=== PATIENT | female | born 1975 | race Caucasian/White ===

== ENCOUNTER → 2016-07-14 | Outpatient (CLI) | payer BC ==
--- NOTE | 2016-07-16 15:12 | CR ---
EXAM DATE: 07/14/16 PATIENT'S AGE: 40 Patient: SHASHANK ESTRADA Facility: [place], [place] Site . Site : [id number] Study: XRay Chest [id number]/13/2017 10:57:59 AM Ordering Physician: Jeff Jamison Final Report: INDICATION: Coughing, wheezing and SOB for 3 weeks. TECHNIQUE: PA and lateral. COMPARISON: None. FINDINGS: Lungs and pleural spaces clear. Heart size and pulmonary vasculature within normal limits. No significant osseous abnormality. IMPRESSION: Negative chest. Dictated by Leon Pierre MD @ Jul 14 2016 4:16PM (Electronic Signature) Report Signed by Proxy and Original Signed Document filed in the Medical Record. MTDD
== END ==
LOC: MW.CHOBGYN 10:45
PROVIDERS: ATTEND Nurse Practitioner Women's Health
DX: J06.9 Acute upper respiratory infection, unspecified (principal)
CPT/HCPCS: 71020; 71020-26

== ENCOUNTER → 2016-08-25 | Outpatient (CLI) | payer BC ==
--- NOTE | 2016-09-03 14:59 | MY ---
EXAMINATION: Bilateral digital mammography utilizing CAD. HISTORY: Screening exam. Comparison is made to previous studies dated 08/20/2012. FINDINGS: Bilateral scattered fibroglandular densities. No suspicious calcifications, masses or a rchitectural distortions. No pathologic appearing lymph nodes, no abnormal skin thickening or nipp le inversion. CAD highlighted regions appear normal at this time. IMPRESSION: BI-RADS category I - negative mammogram. Continued screening according to ACR-ACS gu idelines suggested. THE FALSE-NEGATIVE RATE OF MAMMOGRAM IS APPROXIMATELY 10%. MANAGEMENT OF A PALPABLE ABNORMALITY MUST BE BASED UPON CLINICAL GROUNDS. SENSITIVITY FOR DETECTION OF ABNORMALITIES IN DENSE BREASTS IS LOW. NOTE: A letter will be sent to the patient regarding findings. [facility] -- JULIANA Gunderson [phone] - FAX [phone]
== END | disposition home or self-care (01) ==
LOC: MW.MAM 08:06
PROVIDERS: ATTEND Nurse Practitioner Women's Health
DX: Z12.31 Encounter for screening mammogram for malignant neoplasm of breast (principal)
CPT/HCPCS: G0202; G0202-26

== ENCOUNTER → 2016-09-18 | Outpatient (CLI) | payer BC ==
--- NOTE | 2016-09-19 10:02 | CR ---
EXAMINATION: Lumbar spine HISTORY: Low back pain COMPARISON: None TECHNIQUE: AP and lateral views FINDINGS: The lumbar spinal alignment is normal. The vertebral body heights and disc spaces appear w ell-maintained. There is no fracture or dislocation. The SI joints are symmetric. Early marginal ost eophytes are noted. IMPRESSION: Minimal degenerative changes without acute findings.
== END ==
LOC: MW.CHOBGYN 15:18
PROVIDERS: ATTEND Nurse Practitioner Women's Health
DX: M54.5 Low back pain (principal); M47.816 Spondylosis without myelopathy or radiculopathy, lumbar region
CPT/HCPCS: 72100; 72100-26

== ENCOUNTER 2019-12-17 12:08 | Emergency (ER) | payer BC, OTHER ==
--- NOTE | 2019-12-17 14:28 | CR ---
HISTORY: Pain. TECHNIQUE: Three views of the lumbar spine. COMPARISON: No prior lumbar radiographs. FINDINGS: Five lumbar type vertebral bodies. There is no acute lumbar fracture. Mild loss intervertebral disc height at L5-S1. Mild posterior listhesis of L5 on S1. The lumbar alignment is otherwise maintained. Surgical clips in the right upper quadrant likely relate to prior cholecystectomy. IMPRESSION: 1. Mild posterior listhesis of L5 on S1 with mild loss of disc height at that level. 2. Disc height and alignment at other levels is maintained. 3. No acute fracture. Dictated by Oli Sykes MD @ 12/17/2019 2:26:37 PM Dictated by: Oli Sykes MD @ 12/17/2019 14:26:39 (Electronically Signed)
[2019-12-17] MEDS ORDERED: methylPREDNISolone Sodium Succinate 125 MG/2 ML SDV IM ONE (14:29)
[2019-12-17] MEDS ORDERED: Ketorolac 60 MG/2 ML SDV IM ONE (14:29)
--- NOTE | 2019-12-17 14:34 | EDM.PDOC ---
ED HPI GENERAL MEDICAL PROBLEM - General Chief Complaint: Back Pain or Injury Stated Complaint: BACK PAIN Time Seen by Provider: 12/17/19 12:20 Source of Information: Reports: Patient History Limitations: Reports: No Limitations - History of Present Illness INITIAL COMMENTS - FREE TEXT/NARRATIVE: HISTORY AND PHYSICAL: History of present illness: Patient is a 44-year-old female who presents to the ED today with concern of an exacerbation of low back pain for the past week. Patient states she has a history of low back pain and lumbar issues. Patient states that she has had a bulging disc before at her L5 and S1. Patient states that she has had this monitored with her primary care provider. Patient states she did have a flareup approximately 2 months ago and was placed on steroids at that time and states that she did have improvement of her symptoms. Patient states over the past week she began having another flareup and this morning when she woke up she was more stiff and sore than she has been. Patient states she does have some radiation of her back pain into her left buttocks. Patient denies any trauma or injury of her back. Patient denies any loss or retention of bowel bladder function or saddle anesthesia. Patient denies fever, chills, chest pain, shortness of breath, or cough. Denies headache, neck stiff ness, change in vision, syncope, or near syncope. Denies nausea, vomiting, abdominal pain, diarrhea, constipation, or dysuria. Has not noted any blood in urine or stool. Patient has been eating and drinking appropriately. Review of systems: As per history of present illness and below otherwise all systems reviewed and negative. Past medical history: As per history of present illness and as reviewed below otherwise noncontributory. Surgical history: As per history of present illness and as reviewed below otherwise noncontributory. Social history: See social history for further information Family history: As per history of present illness and as reviewed below otherwise noncontributory. Physical exam: General: Patient is alert, oriented, and in no acute distress. Patient sitting comfortably on exam table. HEENT: Atraumatic, normocephalic, pupils equal and reactive bilaterally, negative for conjunctival pallor or scleral icterus, mucous membranes moist, TMs normal bilaterally, throat clear, neck supple, nontender, trachea midline. No drooling or trismus noted. No meningeal signs. No hot potato voice noted. Lungs: Clear to auscultation, breath sounds equal bilaterally, chest nontender. Heart: S1S2, regular rate and rhythm without overt murmur Abdomen: Soft, nondistended, nontender. Negative for masses or hepatosplenomegaly. Negative for costovertebral tenderness. Pelvis: Stable nontender. Genitourinary: Deferred. Rectal: Deferred. Skin: Intact, warm, dry. No lesions or rashes noted. Extremities: No obvious deformity of the complete spine. No step-offs, crepitus, or point tenderness to palpation of the complete spine. Patient does have pain with range of motion of the lumbar spine. Patellar reflexes intact bilaterally. Heel/toe gait intact. Otherwise, atraumatic, negative for cords or calf pain. Neurovascular unremarkable. Neuro: Awake, alert, oriented. Cranial nerves II through XII unremarkable. Cerebellum unremarkable. Motor and sensory unremarkable throughout. Exam nonfocal. Notes: Patient states she is not currently taking naproxen. Discussed importance for follow-up with her primary care provider. Voices understanding and is agreeable to plan of care. Denies any further questions or concerns at this time. Diagnostics: UA, urine hCG, lumbar x-ray Therapeutics: Toradol, Norflex, Solu-Medrol Prescription: Diclofenac, Flexeril Impression: Acute on chronic low back pain Plan: 1. The medication you received today does cause drowsiness, so do not drive for the remaining day. 2. When resting please lay on a flat firm surface. Limit your mobility to prevent muscle stiffness. Get up to ambulate/move around/gentle stretching multiple times throughout the day. May alternate heat and ice to painful areas. 3. Tylenol as needed for back pain. Otherwise, take the prescribed Flexeril and diclofenac as directed. Diclofenac as an anti-inflammatory medication so do not take any additional NSAIDs with this medication, such as naproxen, ibuprofen, or Aleve. Flexeril, this medication may cause drowsiness, so do not take it while driving or needing to be functioning outside of the home. 4. Follow-up with your primary care provider as discussed. Return to the ED as needed and as discussed. Definitive disposition and diagnosis as appropriate pending reevaluation and review of above. 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: Musculoskeletal History: Reports: Back Pain, Chronic Dermatologic History: Reports: Other (See Below) Other Dermatologic History: acne - Past Surgical History Respiratory Surgical History: Reports: None GI Surgical History: Reports: Cholecystectomy Social & Family History - Family History Family Medical History: Noncontributory - Tobacco Use Smoking Status *Q: Former Smoker Used Tobacco, but Quit: Yes Month/Year Tobacco Last Used: 6 years ago - Caffeine Use Caffeine Use: Reports: Coffee - Recreational Drug Use Recreational Drug Use: No ED ROS GENERAL - Review of Systems Review Of Systems: Comprehensive ROS is negative, except as noted in HPI. ED EXAM, GENERAL - Physical Exam Exam: See Below (See dictation) Course - Vital Signs Last Recorded V/S: Last Vital Signs Temp 97.7 F 12/17/19 12:55 Pulse 104 H 12/17/19 12:55 Resp 18 12/17/19 12:55 BP 146/89 H 12/17/19 12:55 Pulse Ox 96 12/17/19 12:55 - Orders/Labs/Meds Labs: Laboratory Tests 12/17/19 12/17/19 Range/Units 13:38 13:38 Urine Color YELLOW Urine Appearance CLEAR Urine pH 6.5 (5.0-8.0) Ur Specific [place] 1.020 (1.001-1.035) Urine Protein NEGATIVE (NEGATIVE) mg/dL Urine Glucose (UA) NEGATIVE (NEGATIVE) mg/dL Urine Ketones NEGATIVE (NEGATIVE) mg/dL Urine Occult Blood NEGATIVE (NEGATIVE) Urine Nitrite NEGATIVE (NEGATIVE) Urine Bilirubin NEGATIVE (NEGATIVE) Urine Urobilinogen 0.2 (<2.0) EU/dL Ur Leukocyte Esterase NEGATIVE (NEGATIVE) Urine HCG, Qual NEGATIVE (NEGATIVE) Meds: Medications Discontinued Medications Generic Name Dose Route Start Last Admin Trade Name Mello PRN Reason Stop Dose Admin Ketorolac Tromethamine 60 mg 12/17/19 14:29 Toradol IM 12/17/19 14:30 ONETIME ONE Methylprednisolone Sodium Succinate 125 mg 12/17/19 14:29 Solu-Medrol IM 12/17/19 14:30 ONETIME ONE Orphenadrine Citrate 60 mg 12/17/19 14:29 Norflex IM 12/17/19 14:30 ONETIME ONE Departure - Departure Time of Disposition: 14:33 Disposition: Home, Self-Care 01 Clinical Impression: Acute exacerbation of chronic low back pain - Discharge Information Referrals: Kathleen Aguilar MANAGER CONSUMER [Primary Care Provider] - Additional Instructions: The following information is given to patients seen in the emergency department who are being discharged to home. This information is to outline your options for follow-up care. We provide all patients seen in our emergency department with a follow-up referral. The need for follow-up, as well as the timing and circumstances, are variable depending upon the specifics of your emergency department visit. If you don't have a primary care physician on staff, we will provide you with a referral. We always advise you to contact your personal physician following an emergency department visit to inform them of the circumstance of the visit and for follow-up with them and/or the need for any referrals to a consulting specialist. The emergency department will also refer you to a specialist when appropriate. This referral assures that you have the opportunity for follow-up care with a specialist. All of these measure are taken in an effort to provide you with optimal care, which includes your follow-up. Under all circumstances we always encourage you to contact your private physician who remains a resource for coordinating your care. When calling for f ollow-up care, please make the office aware that this follow-up is from your recent emergency room visit. If for any reason you are refused follow-up, please contact the [facility] Emergency Department at and asked to speak to the emergency department charge nurse. [facility] Primary Care [address] [place] [address] [id number] [facility] [address] [place] [address] 1. The medication you received today does cause drowsiness, so do not drive for the remaining day. 2. When resting please lay on a flat firm surface. Limit your mobility to prevent muscle stiffness. Get up to ambulate/move around/gentle stretching multiple times throughout the day. May alternate heat and ice to painful areas. 3. Tylenol as needed for back pain. Otherwise, take the prescribed Flexeril and diclofenac as directed. Diclofenac as an anti-inflammatory medication so do not take any additional NSAIDs with this medication, such as naproxen, ibuprofen, or Aleve. Flexeril, this medication may cause drowsiness, so do not take it while driving or needing to be functioning outside of the home. 4. Follow-up with your primary care provider as discussed. Return to the ED as needed and as discussed. Sepsis Event Note (ED) - Evaluation Sepsis Screening Result: No Definite Risk - Focused Exam Vital Signs: Vital Signs Temp Pulse Resp BP Pulse Ox 12/17/19 12:55 97.7 F 104 H 18 146/89 H 96
== END 2019-12-17 15:25 | disposition home or self-care (01) ==
LOC: MW.ED 12:08
DX: M54.5 Low back pain (principal); G89.29 Other chronic pain; J45.909 Unspecified asthma, uncomplicated; Z87.891 Personal history of nicotine dependence
CPT/HCPCS: 72100; 81003; 81025; 96372; 99283; J1885; J2360; J2930

== ENCOUNTER 2020-01-04 22:21 | Emergency (ER) | payer OTHER ==
[2020-01-04] MEDS ORDERED: Sodium Chloride 0.9% 2.5 ML Syringe FLUSH PRN (22:29)
[2020-01-04] MEDS ORDERED: Sodium Chloride 0.9% 10 ML Syringe FLUSH PRN (22:29)
[2020-01-04 23:26] LABS: BLOOD UREA NITROGEN,BUN 17 mg/dL (7.0-18.0); CARBON DIOXIDE,CO2 23.1 mmol/L (21.0-32.0); CHLORIDE,CL 102 mmol/L (98-107); GLUCOSE RANDOM 105 mg/dL (74-106); POTASSIUM,K 3.7 mmol/L (3.5-5.1); SODIUM,NA 139 mmol/L (136-145)
--- NOTE | 2020-01-05 00:14 | EDM.PDOC ---
ED HPI GENERAL MEDICAL PROBLEM - General Chief Complaint: Respiratory Problem Stated Complaint: SHORTNESS OF BREATHE Time Seen by Provider: 01/04/20 22:29 Source of Information: Reports: Patient, Old Records History Limitations: Reports: No Limitations - History of Present Illness INITIAL COMMENTS - FREE TEXT/NARRATIVE: 44-year-old female with past medical history of chronic back pain presenting with shortness of breath. Patient developed sudden onset dyspnea about 3 hours prior to arrival while at rest. No history of exertion or chemical exposure. No report of any wheezing, coughing, or hemoptysis. Patient states that she used her albuterol inhaler "20 times" before coming to the ER without relief. She denies any associated fever, wheezing, hemoptysis, chest discomfort, nausea, vomiting, diarrhea, abdominal pain, or back pain. No preceding infectious symptoms over the past few days. No other complaints. ROS: A 10-point review of systems was negative, except as noted in the HPI (or in the ROS section of this note). Past medical history: Reviewed, no additional pertinent history. Surgical history: Reviewed in system, no additional pertinent history. Social history: Reviewed in system, no additional pertinent history. Family history: Reviewed in system, no additional pertinent history. PHYSICAL EXAM Vital signs reviewed. Nursing notes reviewed. Constitutional: Awake, alert, non-distressed. Head: Normocephalic, atraumatic. Eyes: EOMI, conjunctiva normal, no discharge, no scleral icterus. Ears, Nose, Throat: External ears and nose normal, moist oral mucosa. Cardiovascular: 2+ radial pulses bilaterally, capillary refill less than 2 seconds. RRR no MRG. Pulmonary: normal work of breathing, no accessory muscle use. CTA BL. Speaking in full sentences without difficulty. Handling secretions well. Abdomen/GI: Soft, nontender, nondistended, no guarding or rigidity, no masses. Musculoskeletal: No deformities. Integumentary: Appropriate color for ethnicity, warm, dry, no pallor or jaundice, no rash. Neurologic: Alert, answering questions appropriately, normal speech, no facial droop, moving all extremities well. Psychiatric: Appropriate mood and affect, normal thought process. 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: Musculoskeletal History: Reports: Back Pain, Chronic Neurological History: Reports: None Psychiatric History: Reports: None Endocrine/Metabolic History: Reports: None Hematologic History: Reports: None Dermatologic History: Reports: Other (See Below) Other Dermatologic History: acne - Infectious Disease History Infectious Disease History: Reports: Chicken Pox - Past Surgical History Respiratory Surgical History: Reports: None GI Surgical History: Reports: Cholecystectomy Social & Family History - Family History Family Medical History: Noncontributory - Tobacco Use Smoking Status *Q: Never Smoker - Caffeine Use Caffeine Use: Reports: Coffee - Recreational Drug Use Recreational Drug Use: No ED ROS GENERAL - Review of Systems Review Of Systems: See Below ED EXAM, GENERAL - Physical Exam Exam: See Below EKG INTERPRETATION EKG Interpretation Comments: 12-Lead ECG Interpretation Acquired: 11:20 PM Rhythm: Sinus rhythm Rate: 95 bpm [place]: Normal Intervals: Right bundle branch block Ectopy: None Ischemic Changes: None apparent RV Strain: No obvious RV strain pattern. ST Segments/T-Waves: No notable changes Course - Vital Signs Text/Narrative:: Patient hemodynamically stable, afebrile, well-appearing, looks nontoxic. Differential diagnosis includes but is not limited to: Pneumonia, pleural effusion, pneumothorax, pulmonary embolism, congestive heart failure, ACS, arrhythmia, anemia, viral syndrome, and many others. CBC unremarkable. D-dimer negative. Chemistry panel shows mild creatinine elevation. Normal LFTs. Troponin negative. test negative. Chest x- rays are clear. 12-lead ECG non-ischemic. I considered a multitude of differential diagnoses for the patient's shortness of breath, including: Acute coronary syndrome: the ECGs do not demonstrate acute ischemia and troponin testing is negative. They have a HEART score of 1. o Under the original HEART score study, risk of MACE at 30 days with a HEART score 0-3 and a single negative troponin is 1.7% (Dennehotso et al. PMID: [id number]) o Jasper et al. (PMCID: [id number]) demonstrated HEART score 0-3 with negative troponin: 0.2% 30-day risk of all-cause mortality or NH, 0.4% 6-week M VITALY risk Pulmonary embolism: The patient the patient is moderate risk by Wells PE criteria and has a D-dimer within normal limits by our laboratory Pneumonia: The patient has no hypoxia or tachypnea, and has no new radiographic infiltrate. They have no systemic signs of illness such as fever, tachypnea, hypoxia, tachycardia, or rigors. Acute decompensated heart failure/pulmonary edema: no significant respiratory distress (hypoxia, tachypnea), no significant lower extremity edema, no evidence of edema on chest x-rays, no JVD. Pneumo/hemothorax or pleural effusion: no evidence of such on imaging studies, no history of thoracic trauma. Asthma exacerbation: No wheezing or prolonged expiratory phase. COPD exacerbation: No wheezing or prolonged expiratory phase. No history or COPD exacerbation or significant tobacco use. Significant anemia: Hemoglobin normal on CBC. Electrolyte derangements: BMP obtained, without significant derangements. Critical aortic stenosis: No murmur or syncope, no chest pain, no known history of aortic stenosis. Pericardial effusion: Normal heart sounds. No evidence on imaging studies. Chai/pericarditis: No fever, no friction rub, negative troponin testing, non- diagnostic ECG. No preceding viral illness. Viral syndrome (URI, bronchitis): Not supported by history, no rhinorrhea, cough, sore throat, fever, headache, myalgias, or other typical symptoms endorsed. Anxiety state: Presentation not consistent. Work-up negative. Etiology of patient's complaints is not entirely clear but there is no evidence of an acute emergency medical condition requiring further work-up, admission to the hospital, or specialist consultation. Plan: Patient is stable to discharge home with outpatient primary care clinic follow-up. Strict emergency department return precautions were provided, patient indicated understanding. All questions were answered prior to departure. Discharged in good condition. HEART Score for Major Cardiac Events RESULT SUMMARY: 1 points Low Score (0-3 points) Risk of MACE of 0.9-1.7%. INPUTS: History > 0 = Slightly suspicious EKG > 0 = Normal Age > 1 = 45-64 Risk factors > 0 = No known risk factors Initial troponin > 0 = ?normal limit Wells' Criteria for Pulmonary Embolism RESULT SUMMARY: 4.5 points Moderate risk group: 16.2% chance of PE in an ED population. Another study assigned scores ? 4 as PE Unlikely and had a 3% incidence of PE. Another study assigned scores > 4 as PE Likely and had a 28% incidence of PE. INPUTS: Clinical signs and symptoms of DVT > 0 = No PE is #1 diagnosis OR equally likely > 3 = Yes Heart rate > 100 > 1.5 = Yes Immobilization at least 3 days OR surgery in the previous 4 weeks > 0 = No Previous, objectively diagnosed PE or DVT > 0 = No Hemoptysis > 0 = No Malignancy w/ treatment within 6 months or palliative > 0 = No Last Recorded V/S: Last Vital Signs Temp 35.9 C L 01/04/20 22:31 Pulse 97 01/04/20 22:31 Resp 14 01/04/20 22:31 BP 131/80 01/04/20 22:31 Pulse Ox 97 01/04/20 22:31 - Orders/Labs/Meds Orders: Active Orders 24 hr Category Date Time Status Saline Lock Insert [OM.PC] Stat Oth 01/04/20 22:29 Ordered Labs: Laboratory Tests 01/04/20 01/04/20 01/04/20 Range/Units 22:41 22:41 22:41 WBC 5.05 (4.0-11.0) K/uL RBC 4.64 (4.30-5.90) M/uL Hgb 13.4 (12.0-16.0) g/dL Hct 40.7 (36.0-46.0) % MCV 87.7 (80.0-98.0) fL MCH 28.9 (27.0-32.0) pg MCHC 32.9 (31.0-37.0) g/dL RDW Std Deviation 45.4 (28.0-62.0) fl RDW Coeff of Sim 14 (11.0-15.0) % Plt Count 327 (150-400) K/uL MPV 9.30 (7.40-12.00) fL Neut % (Auto) 59.4 (48.0-80.0) % Lymph % (Auto) 29.3 (16.0-40.0) % [place] % (Auto) 9.1 (0.0-15.0) % Eos % (Auto) 1.8 (0.0-7.0) % Baso % (Auto) 0.4 (0.0-1.5) % Neut # (Auto) 3.0 (1.4-5.7) K/uL Lymph # (Auto) 1.5 (0.6-2.4) K/uL [place] # (Auto) 0.5 (0.0-0.8) K/uL Eos # (Auto) 0.1 (0.0-0.7) K/uL Baso # (Auto) 0.0 (0.0-0.1) K/uL Nucleated RBC % 0.0 /100WBC Nucleated RBCs # 0 K/uL D-Dimer, Quantitative (0.0-0.50) mg/L FEU Sodium 139 (136-145) mmol/L Potassium 3.7 (3.5-5.1) mmol/L Chloride 102 (98-107) mmol/L Carbon Dioxide 23.1 (21.0-32.0) mmol/L BUN 17 (7.0-18.0) mg/dL Creatinine 1.1 H (0.6-1.0) mg/dL Est Cr Clr Drug Dosing 54.55 mL/min Estimated GFR (MDRD) 54.2 ml/min Glucose 105 (74-106) mg/dL Calcium 9.0 (8.5-10.1) mg/dL Total Bilirubin 0.2 (0.2-1.0) mg/dL AST 36 (15-37) IU/L ALT 43 (14-63) IU/L Alkaline Phosphatase 84 (46-116) U/L Troponin I < 0.050 (0.000-0.056) ng/mL Total Protein 7.1 (6.4-8.2) g/dL Albumin 3.9 (3.4-5.0) g/dL Globulin 3.2 (2.6-4.0) g/dL Albumin/Globulin Ratio 1.2 (0.9-1.6) HCG, Qual NEGATIVE (NEG) 01/04/20 Range/Units 22:41 WBC (4.0-11.0) K/uL RBC (4.30-5.90) M/uL Hgb (12.0-16.0) g/dL Hct (36.0-46.0) % MCV (80.0-98.0) fL MCH (27.0-32.0) pg MCHC (31.0-37.0) g/dL RDW Std Deviation (28.0-62.0) fl RDW Coeff of Sim (11.0-15.0) % Plt Count (150-400) K/uL MPV (7.40-12.00) fL Neut % (Auto) (48.0-80.0) % Lymph % (Auto) (16.0-40.0) % [place] % (Auto) (0.0-15.0) % Eos % (Auto) (0.0-7.0) % Baso % (Auto) (0.0-1.5) % Neut # (Auto) (1.4-5.7) K/uL Lymph # (Auto) (0.6-2.4) K/uL [place] # (Auto) (0.0-0.8) K/uL Eos # (Auto) (0.0-0.7) K/uL Baso # (Auto) (0.0-0.1) K/uL Nucleated RBC % /100WBC Nucleated RBCs # K/uL D-Dimer, Quantitative 0.33 (0.0-0.50) mg/L FEU Sodium (136-145) mmol/L Potassium (3.5-5.1) mmol/L Chloride (98-107) mmol/L Carbon Dioxide (21.0-32.0) mmol/L BUN (7.0-18.0) mg/dL Creatinine (0.6-1.0) mg/dL Est Cr Clr Drug Dosing mL/min Estimated GFR (MDRD) ml/min Glucose (74-106) mg/dL Calcium (8.5-10.1) mg/dL Total Bilirubin (0.2-1.0) mg/dL AST (15-37) IU/L ALT (14-63) IU/L Alkaline Phosphatase (46-116) U/L Troponin I (0.000-0.056) ng/mL Total Protein (6.4-8.2) g/dL Albumin (3.4-5.0) g/dL Globulin (2.6-4.0) g/dL Albumin/Globulin Ratio (0.9-1.6) HCG, Qual (NEG) Meds: Medications Discontinued Medications Generic Name Dose Route Start Last Admin Trade Name Freq PRN Reason Stop Dose Admin Sodium Chloride 10 ml 01/04/20 22:29 Saline Flush FLUSH ASDIRECTED PRN Keep Vein Open Sodium Chloride 2.5 ml 01/04/20 22:29 Saline Flush FLUSH ASDIRECTED PRN Keep Vein Open Departure - Departure Time of Disposition: 01:21 Disposition: Home, Self-Care 01 Condition: Good Clinical Impression: Dyspnea Qualifiers: Dyspnea type: unspecified Qualified Code(s): R06.00 - Dyspnea, unspecified - Discharge Information *PRESCRIPTION DRUG MONITORING PROGRAM REVIEWED*: Not Applicable *COPY OF PRESCRIPTION DRUG MONITORING REPORT IN PATIENT LASHAWN: Not Applicable Instructions: Shortness of Breath, Adult Referrals: Kathleen Aguilar, [employer] [Primary Care Provider] - 3 Days (For follow-up of symptoms.) Forms: ED Department Discharge Additional Instructions: You were seen in the emergency department for shortness of breath. At this point, your x-rays, blood work, and EKG look reassuring. We see no evidence of pneumonia, heart attack, fluid in the lungs, or a blood clot in your lungs. Your vital signs are normal at the moment. The explanation for your symptoms is not entirely clear but I feel comfortable with you going home tonight. I would like for you to follow-up with your primary medical clinic in the next 2 to 3 days for reevaluation. Obviously, if you develop worsening symptoms such as worsening shortness of breath, chest discomfort, or any other new or concerning symptoms you should come back to the ER right away. Please return the emergency department immediately if your symptoms worsen or if you feel worse. Thank you for choosing the [facility] emergency department in [place] for your medical needs today. It was a pleasure caring for you. The following information is given to patients seen in the emergency department who are being discharged. This information is to outline your options for follow-up care. We provide all patients seen in our emergency department with a follow-up referral. The need for follow-up, as well as the timing and circumstances, are variable depending upon the specifics of your emergency department visit. If you don't have a primary care physician on staff, we will provide you with a referral. We always advise you to contact your personal physician following an emergency department visit to inform them of the circumstance of the visit and for follow-up with them and/or the need for any referrals to a consulting specialist. The emergency department will also refer you to a specialist when appropriate. This referral assures that you have the opportunity for follow-up care with a specialist. All of these measure are taken in an effort to provide you with optimal care, which includes your follow-up. Under all circumstances we always encourage you to contact your private physician who remains a resource for coordinating your care. When calling for follow-up care, please make the office aware that this follow-up is from your recent emergency room visit. If for any reason you are refused follow-up, please contact the [facility] Emergency Department at and asked to speak to the emergency department charge nurse. If you do not have a primary care physician that is caring for you, you can contact these clinics below to set up an appointment to establish care: [facility] - Primary Care [address] [place] [id number] [address] Sepsis Event Note (ED) - Evaluation Sepsis Screening Result: No Definite Risk - Focused Exam Vital Signs: Vital Signs Temp Pulse Resp BP Pulse Ox 01/04/20 22:31 35.9 C L 97 14 131/80 97 - My Orders Last 24 Hours: My Active Orders 01/04/20 22:29 Saline Lock Insert [OM.PC] Stat - Assessment/Plan Last 24 Hours: My Active Orders 01/04/20 22:29 Saline Lock Insert [OM.PC] Stat
--- NOTE | 2020-01-05 00:41 | CR ---
Indication: Dyspnea Technique: Chest 2 views Comparison: None Findings/Impression: Cardiovascular and mediastinum: Heart size and vasculature are normal in caliber and appearance. Mediastinum is within normal limits. Lungs and pleural spaces: Lungs are clear. No sign of infiltrate or mass. No sign of pleural effusion. No pneumothorax. Bones and soft tissues: No significant findings. Dictated by Newton Mcallister MD @ Jan 05 2020 12:38AM Signed by Dr. Newton Mcallister @ Jan 05 2020 12:39AM
== END 2020-01-05 01:34 | disposition home or self-care (01) ==
LOC: MW.ED 22:21
DX: R06.02 Shortness of breath (principal); J45.909 Unspecified asthma, uncomplicated; Z79.899 Other long term (current) drug therapy
CPT/HCPCS: 36415; 71046; 71046-26; 80053; 84484; 84703; 85025; 85379; 93005; 99283; 99285-25

== ENCOUNTER 2020-01-09 03:39 | Inpatient (IN) | payer OTHER ==
[2020-01-09] MEDS ORDERED: LORazepam 2 MG/ML SDV IVPUSH ONE (03:59)
[2020-01-09] MEDS ORDERED: Sodium Chloride 0.9% 2.5 ML Syringe FLUSH PRN (03:59)
[2020-01-09] MEDS ORDERED: Sodium Chloride 0.9% 1,000 ML IV ONE (03:59)
[2020-01-09] MEDS ORDERED: Sodium Chloride 0.9% 10 ML Syringe FLUSH PRN (03:59)
[2020-01-09] MEDS ORDERED: Albuterol/Ipratropium 3.0-0.5 MG/3 ML Neb Soln NEB ONE (03:59)
[2020-01-09 04:24] LABS: BLOOD UREA NITROGEN,BUN 5 mg/dL (7.0-18.0); CARBON DIOXIDE,CO2 21.8 mmol/L (21.0-32.0); CHLORIDE,CL 103 mmol/L (98-107); GLUCOSE RANDOM 112 mg/dL (74-106); POTASSIUM,K 4.2 mmol/L (3.5-5.1); SODIUM,NA 138 mmol/L (136-145)
[2020-01-09] MEDS ORDERED: Dexamethasone 10 MG/ML SDV ONE (04:43)
--- NOTE | 2020-01-09 04:44 | EDM.PDOC ---
ED HPI GENERAL MEDICAL PROBLEM - General Chief Complaint: Respiratory Problem Stated Complaint: SHORTNESS OF BREATH Time Seen by Provider: 01/09/20 03:51 - History of Present Illness INITIAL COMMENTS - FREE TEXT/NARRATIVE: HISTORY AND PHYSICAL: History of present illness: This is a 44-year-old female with history significant for asthma who presents the ER today with progressive shortness of breath since her prior ER visit on January 03. 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 Patient reports that she was doing fairly well until this evening when her shortness of breath started to get much more severe. Patient reports that she has a nonproductive cough. Patient denies any nausea, vomiting, diarrhea, dysuria, frequency, urgency, chest pain, sore throat, rhinorrhea, ear pain abdominal discomfort. Patient reports that she used her albuterol treatment at home without any significant relief in her shortness of breath. Patient denies any calf tenderness or calf edema. Review of systems: As per history of present illness and below otherwise all systems reviewed and negative. Past medical history: As per history of present illness and as reviewed below otherwise noncontributory. Surgical history: As per history of present illness and as reviewed below otherwise noncontributory. Social history: No reported history of drug or alcohol abuse. Family history: As per history of present illness and as reviewed below otherwise noncontributory. Physical exam: HEENT: Atraumatic, normocephalic, pupils reactive, negative for conjunctival pallor or scleral icterus, mucous membranes moist, throat clear, neck supple, nontender, trachea midline. Lungs: Patient is tachypneic with multiple episodes of paroxysmal coughing. Patient has audible mild expiratory wheezing. Chest nontender. Heart: S1S2, regular, negative for clicks, rubs, or JVD. Abdomen: Soft, nondistended, nontender. Negative for masses or hepatosplenomegaly. Negative for costovertebral tenderness. Pelvis: Stable nontender. Genitourinary: Deferred. Rectal: Deferred. Extremities: Atraumatic, negative for cords or calf pain. Neurovascular unremarkable. Neuro: Awake, alert, oriented. Cranial nerves II through XII unremarkable. Cerebellum unremarkable. Motor and sensory unremarkable throughout. Exam nonfocal. Diagnostics: CBC, CMP, d-dimer, BNP, sed rate, lactic acid, C-reactive protein, coronavirus, troponin, chest x-ray, EKG Chest Xray: Normal cardiac silhouette Bilateral diffuse interstitial markings identified. This could be consistent with pulmonary edema but could also be consistent with coronavirus infection. Unable to rule out underlying lobar pneumonia. No PTX No evidence of acute bony fracture. 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 Patient reports that she was tested for coronavirus and was told she was positive on Thursday. Patient reports that her shortness of breath has been progressively worsening requiring her to come to the ER this morning. Patient denies any other symptomatology, patient has any fevers, shakes, chills, URI symptoms, abdominal pain, vomiting, diarrhea. Upon arrival to the ED the patient was extremely tachypneic with hypoxia with a pulse ox of 88% on room air. Patient was placed on 50% facemask with resolution of her hypoxia. Given her hypoxia, the patient was given dexamethasone 10 mg IV. Given her abnormal chest x-ray, the patient was also started on Rocephin and Zithromax to initiate treatment for documented community-acquired pneumonia. Patient has been given DuoNeb treatment for her wheezing and history of asthma. Patient will need to be admitted for further management and treatment of her coronavirus. Critical Care for evaluation and treatment of hypoxia in the setting of coronavirus/COVID-19 infection: The high probability of sudden, clinically significant deterioration in the patient's condition required the highest level of my preparedness to intervene urgently. The services I provided to this patient were to treat and/or prevent clinically significant deterioration. Services included the following: chart data review, reviewing nursing notes and/or old charts, documentation time, it architecture consultant collaboration regarding findings and treatment options, medication orders and management, direct patient care, vital sign assessments and ordering, interpreting and reviewing diagnostic studies/lab tests. Aggregate critical care time includes only time during which I was engaged inwork directly related to the patient's care, as described above, whether at the bedside or elsewhere in the Emergency Department. It did not include time spent performing other reported procedures or the services of residents, students, nurses or physician assistants. Critical Care Time: 35 minutes Discussed case with Dr. Saucedo who has agreed to assist with inpatient care of this patient. - Related Data Allergies Allergy/AdvReac Type Severity Reaction Status Date / Time No Known Allergies Allergy Verified 01/09/20 03:52 Home Meds: Home Meds Albuterol [Proair HFA] 1 puff IH Q4H 12/17/19 [History] Fluticasone Propion/Salmeterol [Advair 250-50 Diskus] 1 each IH BID 12/17/19 [History] Naproxen 500 mg PO BID 12/17/19 [History] Spironolactone 50 mg PO DAILY 12/17/19 [History] Tranexamic Acid [Lysteda] 1,300 mg PO TID 12/17/19 [History] Past Medical History HEENT History: Reports: None Cardiovascular History: Reports: None Respiratory History: Reports: Asthma [employer] History: Reports: Musculoskeletal History: Reports: Back Pain, Chronic Neurological History: Reports: None Psychiatric History: Reports: None Endocrine/Metabolic History: Reports: None Hematologic History: Reports: None Dermatologic History: Reports: Other (See Below) Other Dermatologic History: acne - Infectious Disease History Infectious Disease History: Reports: Chicken Pox - Past Surgical History Respiratory Surgical History: Reports: None GI Surgical History: Reports: Cholecystectomy Social & Family History - Family History Family Medical History: Noncontributory - Caffeine Use Caffeine Use: Reports: Coffee ED ROS GENERAL - Review of Systems Review Of Systems: Comprehensive ROS is negative, except as noted in HPI. ED EXAM, GENERAL - Physical Exam Exam: See Below Course - Vital Signs Last Recorded V/S: Last Vital Signs Temp 96.8 F L 01/09/20 03:40 Pulse 83 01/09/20 05:15 Resp 36 H 01/09/20 03:40 BP 115/85 01/09/20 05:15 Pulse Ox 98 01/09/20 05:15 - Orders/Labs/Meds Orders: Active Orders 24 hr Category Date Time Status Patient Status [ADT] Routine ADT 01/09/20 05:35 Ordered EKG Documentation Completion [RC] STAT Care 01/09/20 03:59 Active Pulse Oximetry [RC] ASDIRECTED Care 01/09/20 03:59 Active CULTURE BLOOD [BC] Stat Lab 01/09/20 04:30 Received CULTURE BLOOD [BC] Stat Lab 01/09/20 04:40 Results UA W/NICKI RFLX IF INDICATED [URIN] Stat Lab 01/09/20 04:00 Ordered Azithromycin [Zithromax] 500 mg Med 01/09/20 04:49 Active Sodium Chloride 0.9% [Normal Saline (AdvBag)] 250 ml IV ONETIME Sodium Chloride 0.9% [Saline Flush] Med 01/09/20 03:59 Active 10 ml FLUSH ASDIRECTED PRN Sodium Chloride 0.9% [Saline Flush] Med 01/09/20 03:59 Active 2.5 ml FLUSH ASDIRECTED PRN Blood Culture x2 Reflex Set [OM.PC] Stat Oth 01/09/20 04:03 Ordered Saline Lock Insert [OM.PC] Stat Oth 01/09/20 03:59 Ordered Medication Orders Azithromycin 500 mg/ Sodium (Chloride) 250 mls @ 250 mls/hr IV ONETIME STA Stop: 01/09/20 05:48 Sodium Chloride (Saline Flush) 10 ml FLUSH ASDIRECTED PRN PRN Reason: Keep Vein Open Last Admin: 01/09/20 04:51 Dose: 10 ml Documented by: MOLLY Sodium Chloride (Saline Flush) 2.5 ml FLUSH ASDIRECTED PRN PRN Reason: Keep Vein Open Last Admin: 01/09/20 05:12 Dose: 2.5 ml Documented by: MOLLY Labs: Laboratory Tests 01/09/20 01/09/20 01/09/20 Range/Units 03:45 03:45 03:45 WBC 6.86 (4.0-11.0) K/uL RBC 4.98 (4.30-5.90) M/uL Hgb 14.6 (12.0-16.0) g/dL Hct 43.7 (36.0-46.0) % MCV 87.8 (80.0-98.0) fL MCH 29.3 (27.0-32.0) pg MCHC 33.4 (31.0-37.0) g/dL RDW Std Deviation 45.9 (28.0-62.0) fl RDW Coeff of Sim 14 (11.0-15.0) % Plt Count 302 (150-400) K/uL MPV 9.60 (7.40-12.00) fL Neut % (Auto) 58.4 (48.0-80.0) % Lymph % (Auto) 32.2 (16.0-40.0) % [place] % (Auto) 7.7 (0.0-15.0) % Eos % (Auto) 1.6 (0.0-7.0) % Baso % (Auto) 0.1 (0.0-1.5) % Neut # (Auto) 4.0 (1.4-5.7) K/uL Lymph # (Auto) 2.2 (0.6-2.4) K/uL [place] # (Auto) 0.5 (0.0-0.8) K/uL Eos # (Auto) 0.1 (0.0-0.7) K/uL Baso # (Auto) 0.0 (0.0-0.1) K/uL Nucleated RBC % 0.0 /100WBC Nucleated RBCs # 0 K/uL D-Dimer, Quantitative (0.0-0.50) mg/L FEU Lactate 3.5 H* (0.20-2.00) mmol/L Sodium 138 (136-145) mmol/L Potassium 4.2 (3.5-5.1) mmol/L Chloride 103 (98-107) mmol/L Carbon Dioxide 21.8 (21.0-32.0) mmol/L BUN 5 L (7.0-18.0) mg/dL Creatinine 1.0 (0.6-1.0) mg/dL Est Cr Clr Drug Dosing 78.44 mL/min Estimated GFR (MDRD) > 60.0 ml/min Glucose 112 H (74-106) mg/dL Calcium 10.0 (8.5-10.1) mg/dL Total Bilirubin 0.2 (0.2-1.0) mg/dL AST 50 H (15-37) IU/L ALT 71 H (14-63) IU/L Alkaline Phosphatase 114 (46-116) U/L Troponin I < 0.050 (0.000-0.056) ng/mL B-Natriuretic Peptide (<100) PG/ML Total Protein 7.3 (6.4-8.2) g/dL Albumin 3.4 (3.4-5.0) g/dL Globulin 3.9 (2.6-4.0) g/dL Albumin/Globulin Ratio 0.9 (0.9-1.6) HCG, Qual (NEG) SARS Virus RNA (PCR) (NEGATIVE) 01/09/20 01/09/20 01/09/20 Range/Units 03:45 03:45 03:45 WBC (4.0-11.0) K/uL RBC (4.30-5.90) M/uL Hgb (12.0-16.0) g/dL Hct (36.0-46.0) % MCV (80.0-98.0) fL MCH (27.0-32.0) pg MCHC (31.0-37.0) g/dL RDW Std Deviation (28.0-62.0) fl RDW Coeff of Sim (11.0-15.0) % Plt Count (150-400) K/uL MPV (7.40-12.00) fL Neut % (Auto) (48.0-80.0) % Lymph % (Auto) (16.0-40.0) % [place] % (Auto) (0.0-15.0) % Eos % (Auto) (0.0-7.0) % Baso % (Auto) (0.0-1.5) % Neut # (Auto) (1.4-5.7) K/uL Lymph # (Auto) (0.6-2.4) K/uL [place] # (Auto) (0.0-0.8) K/uL Eos # (Auto) (0.0-0.7) K/uL Baso # (Auto) (0.0-0.1) K/uL Nucleated RBC % /100WBC Nucleated RBCs # K/uL D-Dimer, Quantitative 0.43 (0.0-0.50) mg/L FEU Lactate (0.20-2.00) mmol/L Sodium (136-145) mmol/L Potassium (3.5-5.1) mmol/L Chloride (98-107) mmol/L Carbon Dioxide (21.0-32.0) mmol/L BUN (7.0-18.0) mg/dL Creatinine (0.6-1.0) mg/dL Est Cr Clr Drug Dosing mL/min Estimated GFR (MDRD) ml/min Glucose (74-106) mg/dL Calcium (8.5-10.1) mg/dL Total Bilirubin (0.2-1.0) mg/dL AST (15-37) IU/L ALT (14-63) IU/L Alkaline Phosphatase (46-116) U/L Troponin I (0.000-0.056) ng/mL B-Natriuretic Peptide 2 (<100) PG/ML Total Protein (6.4-8.2) g/dL Albumin (3.4-5.0) g/dL Globulin (2.6-4.0) g/dL Albumin/Globulin Ratio (0.9-1.6) HCG, Qual NEGATIVE (NEG) SARS Virus RNA (PCR) (NEGATIVE) 01/09/20 Range/Units 04:40 WBC (4.0-11.0) K/uL RBC (4.30-5.90) M/uL Hgb (12.0-16.0) g/dL Hct (36.0-46.0) % MCV (80.0-98.0) fL MCH (27.0-32.0) pg MCHC (31.0-37.0) g/dL RDW Std Deviation (28.0-62.0) fl RDW Coeff of Sim (11.0-15.0) % Plt Count (150-400) K/uL MPV (7.40-12.00) fL Neut % (Auto) (48.0-80.0) % Lymph % (Auto) (16.0-40.0) % [place] % (Auto) (0.0-15.0) % Eos % (Auto) (0.0-7.0) % Baso % (Auto) (0.0-1.5) % Neut # (Auto) (1.4-5.7) K/uL Lymph # (Auto) (0.6-2.4) K/uL [place] # (Auto) (0.0-0.8) K/uL Eos # (Auto) (0.0-0.7) K/uL Baso # (Auto) (0.0-0.1) K/uL Nucleated RBC % /100WBC Nucleated RBCs # K/uL D-Dimer, Quantitative (0.0-0.50) mg/L FEU Lactate (0.20-2.00) mmol/L Sodium (136-145) mmol/L Potassium (3.5-5.1) mmol/L Chloride (98-107) mmol/L Carbon Dioxide (21.0-32.0) mmol/L BUN (7.0-18.0) mg/dL Creatinine (0.6-1.0) mg/dL Est Cr Clr Drug Dosing mL/min Estimated GFR (MDRD) ml/min Glucose (74-106) mg/dL Calcium (8.5-10.1) mg/dL Total Bilirubin (0.2-1.0) mg/dL AST (15-37) IU/L ALT (14-63) IU/L Alkaline Phosphatase (46-116) U/L Troponin I (0.000-0.056) ng/mL B-Natriuretic Peptide (<100) PG/ML Total Protein (6.4-8.2) g/dL Albumin (3.4-5.0) g/dL Globulin (2.6-4.0) g/dL Albumin/Globulin Ratio (0.9-1.6) HCG, Qual (NEG) SARS Virus RNA (PCR) POSITIVE H (NEGATIVE) Meds: Medications Generic Name Dose Route Start Last Admin Trade Name Freq PRN Reason Stop Dose Admin Azithromycin 500 mg/ Sodium 250 mls @ 250 mls/hr 01/09/20 04:49 Chloride IV 01/09/20 05:48 ONETIME STA Sodium Chloride 10 ml 01/09/20 03:59 01/09/20 04:51 Saline Flush FLUSH 10 ml ASDIRECTED PRN Administration Keep Vein Open Sodium Chloride 2.5 ml 01/09/20 03:59 01/09/20 05:12 Saline Flush FLUSH 2.5 ml ASDIRECTED PRN Administration Keep Vein Open Discontinued Medications Generic Name Dose Route Start Last Admin Trade Name Freq PRN Reason Stop Dose Admin Albuterol/Ipratropium 3 ml 01/09/20 03:59 01/09/20 04:50 Duoneb 3.0-0.5 Mg/3 Ml NEB 01/09/20 04:00 3 ml ONETIME ONE Administration Dexamethasone 10 mg 01/09/20 04:45 01/09/20 04:46 Dexamethasone IVPUSH 01/09/20 04:46 10 mg ONETIME ONE Administration Dexamethasone Confirm 01/09/20 04:43 01/09/20 04:51 Dexamethasone Administered 01/09/20 04:44 Not Given Dose 10 mg .ROUTE .STK-MED ONE Sodium Chloride 1,000 mls @ 999 mls/hr 01/09/20 03:59 01/09/20 04:13 Normal Saline IV 01/09/20 04:59 999 mls/hr .Bolus ONE Administration Ceftriaxone Sodium/Dextrose 1 50 mls @ 100 mls/hr 01/09/20 04:48 01/09/20 05:09 gm/ Premix IV 01/09/20 05:17 100 mls/hr ONETIME ONE Administration Lorazepam 1 mg 01/09/20 03:59 01/09/20 04:14 Ativan IVPUSH 01/09/20 04:00 1 mg ONETIME ONE Administration Departure - Departure Time of Disposition: 05:01 Disposition: Admitted As Inpatient 67 Condition: Fair Clinical Impression: COVID-19 virus infection, Dyspnea due to COVID-19, Pneumonia due to COVID-19 virus - Discharge Information Referrals: PCP,None [Primary Care Provider] - Forms: ED Department Discharge Sepsis Event Note (ED) - Evaluation Sepsis Screening Result: No Definite Risk - Focused Exam Vital Signs: Vital Signs Temp Pulse Resp BP Pulse Ox 01/09/20 05:15 83 115/85 98 01/09/20 04:45 85 119/97 H 100 01/09/20 04:15 103 H 104/48 L 99 01/09/20 03:40 96.8 F L 130 H 36 H 132/62 88 L - My Orders Last 24 Hours: My Active Orders 01/09/20 03:59 EKG Documentation Completion [RC] STAT Pulse Oximetry [RC] ASDIRECTED Sodium Chloride 0.9% [Saline Flush] 10 ml FLUSH ASDIRECTED PRN Sodium Chloride 0.9% [Saline Flush] 2.5 ml FLUSH ASDIRECTED PRN Saline Lock Insert [OM.PC] Stat 01/09/20 04:00 UA W/NICKI RFLX IF INDICATED [URIN] Stat 01/09/20 04:03 Blood Culture x2 Reflex Set [OM.PC] Stat 01/09/20 04:30 CULTURE BLOOD [BC] Stat 01/09/20 04:40 CULTURE BLOOD [BC] Stat 01/09/20 04:49 Azithromycin [Zithromax] 500 mg Sodium Chloride 0.9% [Normal Saline (AdvBag)] 250 ml IV ONETIME 01/09/20 05:35 Patient Status [ADT] Routine - Assessment/Plan Last 24 Hours: My Active Orders 01/09/20 03:59 EKG Documentation Completion [RC] STAT Pulse Oximetry [RC] ASDIRECTED Sodium Chloride 0.9% [Saline Flush] 10 ml FLUSH ASDIRECTED PRN Sodium Chloride 0.9% [Saline Flush] 2.5 ml FLUSH ASDIRECTED PRN Saline Lock Insert [OM.PC] Stat 01/09/20 04:00 UA W/NICKI RFLX IF INDICATED [URIN] Stat 01/09/20 04:03 Blood Culture x2 Reflex Set [OM.PC] Stat 01/09/20 04:30 CULTURE BLOOD [BC] Stat 01/09/20 04:40 CULTURE BLOOD [BC] Stat 01/09/20 04:49 Azithromycin [Zithromax] 500 mg Sodium Chloride 0.9% [Normal Saline (AdvBag)] 250 ml IV ONETIME 01/09/20 05:35 Patient Status [ADT] Routine
[2020-01-09] MEDS ORDERED: Dexamethasone 10 MG/ML SDV IVPUSH ONE (04:45)
[2020-01-09] MEDS ORDERED: cefTRIAXone 1 GM in Premix Bag 1 BAG IV ONE (04:48)
[2020-01-09] MEDS ORDERED: Azithromycin 500 MG in Sodium Chloride 0.9% 250 ML IV STA (04:49)
--- NOTE | 2020-01-09 05:37 | CR ---
HISTORY: Shortness of breath. Positive COVID COMPARISON: 01/04/2020 FINDINGS: A portable erect AP view of the chest was obtained at 0423 hours. There is new mild patchy bilateral lower lobe infiltrate, nonspecific. This could represent early COVID-19 infection. The heart remains normal in size. The mediastinum is normal in appearance. The osseous structures are normal in appearance for the patient`s age. IMPRESSION: New mild patchy bilateral lower lobe infiltrate, consistent with early COVID-19 infection. Dictated by Bang Freedman MD @ Jan 09 2020 5:34AM Signed by Dr. Bang Freedman @ Jan 09 2020 5:36AM
--- NOTE | 2020-01-09 07:45 | PCM.HP.2 ---
<Miguel Boyd - Last Filed: 01/09/20 11:09> H&P History of Present Illness - General Date of Service: 01/09/20 Admit Problem/Dx: Admission Diagnosis/Problem Admission Diagnosis/Problem Pneumonia Source of Information: Patient History Limitations: Reports: No Limitations - History of Present Illness Initial Comments - Free Text/Narative: 44 y.o female w. PMH of Asthma Presenting with increasing shortness of breath and headache for the past couple of days. 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 For the past 2 nights she has been feeling short of breath at rest with increasing nonproductive cough and a heavy chest sensation. Denies any fevers, chills, body aches however does feel fatigued. Did use her home medication of duo nebs for asthma but did not find any relief. ED course; chest x-ray consistent with a bilateral lower lobe infiltrates concerning for early COVID. COVID positive on swab. Requiring 2 L O2. Concerns for versus bacterial superinfection in light of her history of asthma and previous tobacco abuse; started on azithromycin and ceftriaxone. Bed line.: States breathing is improving but is still having a nonproductive cough and mild shortness of breath at rest. Otherwise states her headache is improving and denies any fevers, chills, body aches - Related Data Allergies/Adverse Reactions: Allergies Allergy/AdvReac Type Severity Reaction Status Date / Time All narcotics Allergy Itching Uncoded 01/09/20 06:48 Home Medications: Home Meds Albuterol [Proair HFA] 1 puff IH Q4H PRN 12/17/19 [History] Fluticasone Propion/Salmeterol [Advair 250-50 Diskus] 1 each IH BID 12/17/19 [History] Naproxen 500 mg PO BID PRN 12/17/19 [History] Spironolactone 50 mg PO DAILY 12/17/19 [History] Tranexamic Acid [Lysteda] 1,300 mg PO TID 12/17/19 [History] Past Medical History HEENT History: Reports: None Cardiovascular History: Reports: None Respiratory History: Reports: Asthma Genitourinary History: Reports: None 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: Musculoskeletal History: Reports: Back Pain, Chronic Neurological History: Reports: None Psychiatric History: Reports: None Endocrine/Metabolic History: Reports: None 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 Hematologic History: Reports: None Immunologic History: Reports: None Oncologic (Cancer) History: Reports: None Dermatologic History: Reports: Other (See Below) Other Dermatologic History: acne - Infectious Disease History Infectious Disease History: Reports: Chicken Pox Other Infectious Disease History: Covid-19 - Past Surgical History Head Surgeries/Procedures: Reports: None Respiratory Surgical History: Reports: None GI Surgical History: Reports: Cholecystectomy Social & Family History - Family History Family Medical History: Noncontributory - Tobacco Use Smoking Status *Q: Never Smoker - Caffeine Use Caffeine Use: Reports: Coffee, Soda, Tea - Recreational Drug Use Recreational Drug Use: No H&P Review of Systems - Review of Systems: Review Of Systems: See Below General: Reports: Fatigue. Denies: Fever, Chills HEENT: Reports: No Symptoms Pulmonary: Reports: Shortness of Breath, Cough. Denies: Wheezing, Pleuritic Chest Pain, Sputum, Hemoptysis Cardiovascular: Reports: No Symptoms Gastrointestinal: Reports: No Symptoms Genitourinary: Reports: No Symptoms Musculoskeletal: Reports: No Symptoms Skin: Reports: No Symptoms Psychiatric: Reports: No Symptoms Neurological: Reports: Headache Exam - Exam Exam: See Below - Vital Signs Vital Signs: Last Vital Signs Temp 99.3 F 01/09/20 06:38 Pulse 88 01/09/20 06:38 Resp 27 H 01/09/20 06:38 BP 115/73 01/09/20 06:38 Pulse Ox 99 01/09/20 06:38 Weight: 95 kg - Exam Quality Assessment: Supplemental Oxygen General: Alert, Oriented, Cooperative HEENT: EOMI Neck: Supple, Trachea Midline Lungs: Other (Mild rhonchi noted in left>right lung field; otherwise moving air ) Cardiovascular: Regular Rate, Regular Rhythm GI/Abdominal Exam: Soft, Non-Tender Back Exam: Normal Inspection Extremities: Normal Inspection, No Pedal Edema Skin: Warm Neurological: Cranial Nerves Intact Neuro Extensive - Mental Status: Alert, Oriented x3, Normal Mood/Affect Neuro Extensive - Motor, Sensory, Reflexes: CN II-XII Intact Psychiatric: Alert, Normal Affect, Normal Mood - Patient Data Lab Results Last 24 hrs: Laboratory Results - last 24 hr 01/09/20 01/09/20 01/09/20 Range/Units 03:45 03:45 03:45 WBC 6.86 (4.0-11.0) K/uL RBC 4.98 (4.30-5.90) M/uL Hgb 14.6 (12.0-16.0) g/dL Hct 43.7 (36.0-46.0) % MCV 87.8 (80.0-98.0) fL MCH 29.3 (27.0-32.0) pg MCHC 33.4 (31.0-37.0) g/dL RDW Std Deviation 45.9 (28.0-62.0) fl RDW Coeff of Sim 14 (11.0-15.0) % Plt Count 302 (150-400) K/uL MPV 9.60 (7.40-12.00) fL Neut % (Auto) 58.4 (48.0-80.0) % Lymph % (Auto) 32.2 (16.0-40.0) % [place] % (Auto) 7.7 (0.0-15.0) % Eos % (Auto) 1.6 (0.0-7.0) % Baso % (Auto) 0.1 (0.0-1.5) % Neut # (Auto) 4.0 (1.4-5.7) K/uL Lymph # (Auto) 2.2 (0.6-2.4) K/uL [place] # (Auto) 0.5 (0.0-0.8) K/uL Eos # (Auto) 0.1 (0.0-0.7) K/uL Baso # (Auto) 0.0 (0.0-0.1) K/uL Nucleated RBC % 0.0 /100WBC Nucleated RBCs # 0 K/uL D-Dimer, Quantitative (0.0-0.50) mg/L FEU Lactate 3.5 H* (0.20-2.00) mmol/L Sodium 138 (136-145) mmol/L Potassium 4.2 (3.5-5.1) mmol/L Chloride 103 (98-107) mmol/L Carbon Dioxide 21.8 (21.0-32.0) mmol/L BUN 5 L (7.0-18.0) mg/dL Creatinine 1.0 (0.6-1.0) mg/dL Est Cr Clr Drug Dosing 78.44 mL/min Estimated GFR (MDRD) > 60.0 ml/min Glucose 112 H (74-106) mg/dL Calcium 10.0 (8.5-10.1) mg/dL Phosphorus (2.6-4.7) mg/dL Magnesium (1.8-2.4) mg/dL Total Bilirubin 0.2 (0.2-1.0) mg/dL AST 50 H (15-37) IU/L ALT 71 H (14-63) IU/L Alkaline Phosphatase 114 (46-116) U/L Troponin I < 0.050 (0.000-0.056) ng/mL B-Natriuretic Peptide (<100) PG/ML Total Protein 7.3 (6.4-8.2) g/dL Albumin 3.4 (3.4-5.0) g/dL Globulin 3.9 (2.6-4.0) g/dL Albumin/Globulin Ratio 0.9 (0.9-1.6) HCG, Qual (NEG) SARS Virus RNA (PCR) (NEGATIVE) 01/09/20 01/09/20 01/09/20 Range/Units 03:45 03:45 03:45 WBC (4.0-11.0) K/uL RBC (4.30-5.90) M/uL Hgb (12.0-16.0) g/dL Hct (36.0-46.0) % MCV (80.0-98.0) fL MCH (27.0-32.0) pg MCHC (31.0-37.0) g/dL RDW Std Deviation (28.0-62.0) fl RDW Coeff of Sim (11.0-15.0) % Plt Count (150-400) K/uL MPV (7.40-12.00) fL Neut % (Auto) (48.0-80.0) % Lymph % (Auto) (16.0-40.0) % [place] % (Auto) (0.0-15.0) % Eos % (Auto) (0.0-7.0) % Baso % (Auto) (0.0-1.5) % Neut # (Auto) (1.4-5.7) K/uL Lymph # (Auto) (0.6-2.4) K/uL [place] # (Auto) (0.0-0.8) K/uL Eos # (Auto) (0.0-0.7) K/uL Baso # (Auto) (0.0-0.1) K/uL Nucleated RBC % /100WBC Nucleated RBCs # K/uL D-Dimer, Quantitative 0.43 (0.0-0.50) mg/L FEU Lactate (0.20-2.00) mmol/L Sodium (136-145) mmol/L Potassium (3.5-5.1) mmol/L Chloride (98-107) mmol/L Carbon Dioxide (21.0-32.0) mmol/L BUN (7.0-18.0) mg/dL Creatinine (0.6-1.0) mg/dL Est Cr Clr Drug Dosing mL/min Estimated GFR (MDRD) ml/min Glucose (74-106) mg/dL Calcium (8.5-10.1) mg/dL Phosphorus (2.6-4.7) mg/dL Magnesium (1.8-2.4) mg/dL Total Bilirubin (0.2-1.0) mg/dL AST (15-37) IU/L ALT (14-63) IU/L Alkaline Phosphatase (46-116) U/L Troponin I (0.000-0.056) ng/mL B-Natriuretic Peptide 2 (<100) PG/ML Total Protein (6.4-8.2) g/dL Albumin (3.4-5.0) g/dL Globulin (2.6-4.0) g/dL Albumin/Globulin Ratio (0.9-1.6) HCG, Qual NEGATIVE (NEG) SARS Virus RNA (PCR) (NEGATIVE) 01/09/20 01/09/20 Range/Units 03:45 04:40 WBC (4.0-11.0) K/uL RBC (4.30-5.90) M/uL Hgb (12.0-16.0) g/dL Hct (36.0-46.0) % MCV (80.0-98.0) fL MCH (27.0-32.0) pg MCHC (31.0-37.0) g/dL RDW Std Deviation (28.0-62.0) fl RDW Coeff of Sim (11.0-15.0) % Plt Count (150-400) K/uL MPV (7.40-12.00) fL Neut % (Auto) (48.0-80.0) % Lymph % (Auto) (16.0-40.0) % [place] % (Auto) (0.0-15.0) % Eos % (Auto) (0.0-7.0) % Baso % (Auto) (0.0-1.5) % Neut # (Auto) (1.4-5.7) K/uL Lymph # (Auto) (0.6-2.4) K/uL [place] # (Auto) (0.0-0.8) K/uL Eos # (Auto) (0.0-0.7) K/uL Baso # (Auto) (0.0-0.1) K/uL Nucleated RBC % /100WBC Nucleated RBCs # K/uL D-Dimer, Quantitative (0.0-0.50) mg/L FEU Lactate (0.20-2.00) mmol/L Sodium (136-145) mmol/L Potassium (3.5-5.1) mmol/L Chloride (98-107) mmol/L Carbon Dioxide (21.0-32.0) mmol/L BUN (7.0-18.0) mg/dL Creatinine (0.6-1.0) mg/dL Est Cr Clr Drug Dosing mL/min Estimated GFR (MDRD) ml/min Glucose (74-106) mg/dL Calcium (8.5-10.1) mg/dL Phosphorus 2.4 L (2.6-4.7) mg/dL Magnesium 1.5 L (1.8-2.4) mg/dL Total Bilirubin (0.2-1.0) mg/dL AST (15-37) IU/L ALT (14-63) IU/L Alkaline Phosphatase (46-116) U/L Troponin I (0.000-0.056) ng/mL B-Natriuretic Peptide (<100) PG/ML Total Protein (6.4-8.2) g/dL Albumin (3.4-5.0) g/dL Globulin (2.6-4.0) g/dL Albumin/Globulin Ratio (0.9-1.6) HCG, Qual (NEG) SARS Virus RNA (PCR) POSITIVE H (NEGATIVE) Result Diagrams: 01/09/20 03:45 01/09/20 03:45 Victor Manuel Results Last 24 hrs: Microbiology 01/09/20 04:40 Anaerobic Blood Culture - Final Blood - Venous - Lab Draw Sepsis Event Note - Evaluation Sepsis Screening Result: No Definite Risk - Focused Exam Vital Signs: Vital Signs Temp Pulse Resp BP Pulse Ox 01/09/20 06:38 99.3 F 88 27 H 115/73 99 01/09/20 05:15 83 115/85 98 01/09/20 04:45 85 119/97 H 100 01/09/20 04:15 103 H 104/48 L 99 01/09/20 03:40 96.8 F L 130 H 36 H 132/62 88 L Problem List Initiated/Reviewed/Updated: Yes Orders Last 24hrs: Active Orders 24 hr Category Date Time Status Patient Status [ADT] Routine ADT 01/09/20 05:35 Active EKG Documentation Completion [RC] STAT Care 01/09/20 03:59 Active Oxygen Therapy Adult [Oxygen Therapy] [RC] ASDIRECTED Care 01/09/20 05:56 Active Pulse Oximetry [RC] ASDIRECTED Care 01/09/20 03:59 Active RT Post Treatment Assessment [RC] Click to Edit Care 01/09/20 05:57 Active RT Post Treatment Assessment [RC] Click to Edit Care 01/09/20 07:44 Ordered RT Pre-Treatment Assessment [RC] Click to Edit Care 01/09/20 05:57 Active RT Pre-Treatment Assessment [RC] Click to Edit Care 01/09/20 07:44 Ordered Telemetry Monitoring [Cardiac Monitoring] [RC] . Care 01/09/20 05:54 Active DIRECTED Vital Signs [RC] Q4H Care 01/09/20 08:00 Active Regular Diet [DIET] Diet 01/09/20 Breakfast Active CULTURE BLOOD [BC] Stat Lab 01/09/20 04:30 Received CULTURE BLOOD [BC] Stat Lab 01/09/20 04:40 Results LACTIC ACID,WHOLE BLOOD [BG] Routine Lab 01/09/20 09:00 Ordered UA W/VICTOR MANUEL RFLX IF INDICATED [URIN] Stat Lab 01/09/20 04:00 Ordered Albuterol/Ipratropium [Combivent Respimat] Med 01/09/20 05:57 Active 2 gm INH Q4H PRN Azithromycin [Zithromax] 500 mg Med 01/10/20 09:00 Active Sodium Chloride 0.9% [Normal Saline (AdvBag)] 250 ml IV DAILY Enoxaparin [Lovenox] Med 01/09/20 09:00 Active 40 mg SUBCUT Q24H Fluticasone/Salmeterol [Advair Diskus 250-50] Med 01/09/20 09:00 Ordered 1 each INH BID Sodium Chloride 0.9% [Saline Flush] Med 01/09/20 03:59 Active 10 ml FLUSH ASDIRECTED PRN Sodium Chloride 0.9% [Saline Flush] Med 01/09/20 03:59 Active 2.5 ml FLUSH ASDIRECTED PRN Spironolactone [Spironolactone] Med 01/09/20 09:00 Ordered 50 mg PO DAILY cefTRIAXone [Rocephin in Dextrose,Iso-Osm 1 GM/50 ML] 1 Med 01/10/20 08:00 Active gm Premix Bag 1 bag IV Q24H Blood Culture x2 Reflex Set [OM.PC] Stat Oth 01/09/20 04:03 Ordered Saline Lock Insert [OM.PC] Stat Oth 01/09/20 03:59 Ordered Medication Orders Albuterol/Ipratropium (Combivent Respimat) 2 gm INH Q4H PRN PRN Reason: Shortness of Breath Enoxaparin Sodium (Lovenox) 40 mg SUBCUT Q24H VETO Azithromycin 500 mg/ Sodium (Chloride) 250 mls @ 250 mls/hr IV DAILY VETO Ceftriaxone Sodium/Dextrose 1 (gm/ Premix) 50 mls @ 100 mls/hr IV Q24H VETO Sodium Chloride (Saline Flush) 10 ml FLUSH ASDIRECTED PRN PRN Reason: Keep Vein Open Last Admin: 01/09/20 04:51 Dose: 10 ml Documented by: ARANANG Sodium Chloride (Saline Flush) 2.5 ml FLUSH ASDIRECTED PRN PRN Reason: Keep Vein Open Last Admin: 01/09/20 05:12 Dose: 2.5 ml Documented by: MOLLY Assessment/Plan Comment:: Assessment: 1. Sepsis in setting of + Covid 2. Hypoxic respiratory failure secondary to above 3. PMH :asthma and previous tobacco abuser Plan. Admit to inpatient. Full code. I/o's per routine DVT prophylaxis GI prophylaxis: pantoprazole 40 daily 1. COVID: Remdesevir 200 today, 100 for 4 additional days thereafter.Paperwork and consent signed. risks/benefits of medication explained to patient. Dexamethasone 6 mg Daily; received Today's dose in ED Continue O2 support PRN; maintain sats >92% Continue to monitor fluid status; bolus 250 -500 cc PRN ; encourage PO intake repeat lactate negative this AM Full dose/weight based dose of Lovenox secondary to COVID/hypercoagulability Concerns for CAP/superimposed: continue Azithro+CTX ; procalcitonin ordered via ED; can titrate off if needed; most likely will complete course based off of clinical picture Continue Combivent PRN [id number] 2 Hypomagnesemia: repleted w. 2 grams; dual benefit for asthma/respiratory support. 3. Repeat lactate; continue to monitor fluid status.. Afebrile and o2 sats >98%; awaiting UA. <Staci Saucedo - Last Filed: 01/11/20 12:54> H&P History of Present Illness - General Admit Problem/Dx: Admission Diagnosis/Problem Admission Diagnosis/Problem Pneumonia - History of Present Illness Initial Comments - Free Text/Narative: I performed a history and physical exam of the patient and discussed management with resident. I have reviewed the residents note and agree with documented findings and plan unless otherwise specified in my note. Exam - Vital Signs Vital Signs: Last Vital Signs Temp 36.5 C 01/11/20 11:37 Pulse 65 01/11/20 11:37 Resp 17 01/11/20 11:37 BP 119/61 01/11/20 11:37 Pulse Ox 96 01/11/20 11:37 - Patient Data Lab Results Last 24 hrs: Laboratory Results - last 24 hr 01/11/20 01/11/20 Range/Units 05:20 05:20 WBC 9.13 (4.0-11.0) K/uL RBC 4.31 (4.30-5.90) M/uL Hgb 12.3 (12.0-16.0) g/dL Hct 37.8 (36.0-46.0) % MCV 87.7 (80.0-98.0) fL MCH 28.5 (27.0-32.0) pg MCHC 32.5 (31.0-37.0) g/dL RDW Std Deviation 46.0 (28.0-62.0) fl RDW Coeff of Sim 14 (11.0-15.0) % Plt Count 362 (150-400) K/uL MPV 9.80 (7.40-12.00) fL Neut % (Auto) 75.9 (48.0-80.0) % Lymph % (Auto) 14.9 L (16.0-40.0) % [place] % (Auto) 9.1 (0.0-15.0) % Eos % (Auto) 0.0 (0.0-7.0) % Baso % (Auto) 0.1 (0.0-1.5) % Neut # (Auto) 6.9 H (1.4-5.7) K/uL Lymph # (Auto) 1.4 (0.6-2.4) K/uL [place] # (Auto) 0.8 (0.0-0.8) K/uL Eos # (Auto) 0.0 (0.0-0.7) K/uL Baso # (Auto) 0.0 (0.0-0.1) K/uL Nucleated RBC % 0.0 /100WBC Nucleated RBCs # 0 K/uL Sodium 141 (136-145) mmol/L Potassium 3.8 (3.5-5.1) mmol/L Chloride 106 (98-107) mmol/L Carbon Dioxide 22.2 (21.0-32.0) mmol/L BUN 13 (7.0-18.0) mg/dL Creatinine 0.9 (0.6-1.0) mg/dL Est Cr Clr Drug Dosing 66.67 mL/min Estimated GFR (MDRD) > 60.0 ml/min Glucose 97 (74-106) mg/dL Calcium 8.8 (8.5-10.1) mg/dL Total Bilirubin 0.3 (0.2-1.0) mg/dL AST 40 H (15-37) IU/L ALT 72 H (14-63) IU/L Alkaline Phosphatase 90 (46-116) U/L Total Protein 6.8 (6.4-8.2) g/dL Albumin 3.2 L (3.4-5.0) g/dL Globulin 3.6 (2.6-4.0) g/dL Albumin/Globulin Ratio 0.9 (0.9-1.6) Result Diagrams: 01/11/20 05:20 01/11/20 05:20 Victor Manuel Results Last 24 hrs: Microbiology 01/09/20 04:40 Aerobic Blood Culture - Preliminary Blood - Venous - Lab Draw NO GROWTH AFTER 2 DAYS Anaerobic Blood Culture - Final 01/09/20 04:30 Aerobic Blood Culture - Preliminary Blood - Venous NO GROWTH AFTER 2 DAYS Anaerobic Blood Culture - Preliminary NO GROWTH AFTER 2 DAYS Sepsis Event Note - Focused Exam Vital Signs: Vital Signs Temp Pulse Resp BP Pulse Ox 01/11/20 11:37 36.5 C 65 17 119/61 96 01/11/20 08:01 36.3 C 69 18 114/72 97 01/11/20 03:17 36.7 C 88 20 120/75 99 Orders Last 24hrs: Active Orders 24 hr Category Date Time Status RT Post Treatment Assessment [RC] Click to Edit Care 01/11/20 10:45 Active RT Pre-Treatment Assessment [RC] Click to Edit Care 01/11/20 10:45 Active CBC WITH AUTO DIFF [HEME] AM Lab 01/12/20 05:11 Ordered COMPREHENSIVE METABOLIC PN,CMP [CHEM] AM Lab 01/12/20 05:11 Ordered Albuterol/Ipratropium [Combivent Respimat] Med 01/11/20 10:00 Active 0 gm INH Q4H Benzonatate [Tessalon Perles] Med 01/10/20 12:30 Active 100 mg PO TID Codeine/guaiFENesin [Robitussin AC] Med 01/11/20 10:45 Active 5 ml PO Q3H Medication Orders Acetaminophen (Tylenol Extra Strength) 500 mg PO Q6H PRN PRN Reason: Pain Last Admin: 01/11/20 03:38 Dose: 500 mg Documented by: Admin: 01/09/20 19:26 Dose: 500 mg Documented by: VINOD Albuterol/Ipratropium (Combivent Respimat) 0 gm INH Q4H [facility] Last Admin: 01/11/20 11:09 Dose: 1 puff Documented by: ARMANDO Benzocaine/Menthol (Cepacol Sore Throat) 1 lozenge MUCMEM Q2H PRN PRN Reason: Cough/sore throat Last Admin: 01/10/20 16:49 Dose: 1 lozenge Documented by: CEDRIC Benzonatate (Tessalon Perles) 100 mg PO TID [facility] Last Admin: 01/11/20 07:02 Dose: 100 mg Documented by: Admin: 01/10/20 21:17 Dose: 100 mg Documented by: Admin: 01/10/20 14:41 Dose: Not Given Documented by: Admin: 01/10/20 12:06 Dose: 100 mg Documented by: CEDRIC Dexamethasone (Dexamethasone) 6 mg PO DAILY [facility] Last Admin: 01/11/20 08:08 Dose: 6 mg Documented by: Admin: 01/10/20 09:02 Dose: 6 mg Documented by: CEDRIC Enoxaparin Sodium (Lovenox) 100 mg SUBCUT DAILY [facility] Last Admin: 01/11/20 08:15 Dose: 100 mg Documented by: Admin: 01/10/20 09:04 Dose: 100 mg Documented by: CEDRIC Guaifenesin/Codeine Phosphate (Robitussin Ac) 5 ml PO Q3H [facility] Last Admin: 01/11/20 11:38 Dose: 5 ml Documented by: BILL Azithromycin 500 mg/ Sodium (Chloride) 250 mls @ 250 mls/hr IV DAILY [facility] Last Admin: 01/11/20 09:01 Dose: 250 mls/hr Documented by: Infusion: 01/10/20 10:11 Dose: 250 mls/hr Documented by: Admin: 01/10/20 09:11 Dose: 250 mls/hr Documented by: CEDRIC Ceftriaxone Sodium/Dextrose 1 (gm/ Premix) 50 mls @ 100 mls/hr IV Q24H [facility] Last Admin: 01/11/20 08:09 Dose: 100 mls/hr Documented by: Infusion: 01/10/20 09:00 Dose: 100 mls/hr Documented by: Admin: 01/10/20 08:30 Dose: 100 mls/hr Documented by: CEDRIC REMDESIVIR (EUA) 100 mg/ (Sodium Chloride) 100 mls @ 100 mls/hr IV Q24H [facility] Last Admin: 01/11/20 10:11 Dose: 100 mls/hr Documented by: Infusion: 01/10/20 11:39 Dose: 100 mls/hr Documented by: Admin: 01/10/20 10:39 Dose: 100 mls/hr Documented by: CEDRIC Pantoprazole Sodium 40 mg/ (Sodium Chloride) 10 mls @ 300 mls/hr IV DAILY [facility] Last Admin: 01/11/20 08:10 Dose: 300 mls/hr Documented by: Infusion: 01/10/20 09:06 Dose: 300 mls/hr Documented by: Admin: 01/10/20 09:04 Dose: 300 mls/hr Documented by: Infusion: 01/09/20 13:24 Dose: 300 mls/hr Documented by: Admin: 01/09/20 13:22 Dose: 300 mls/hr Documented by: LESLI Fluticasone/Salmeterol (Advair Diskus 250-50) 1 puff INH BIDRT [facility] Last Admin: 01/11/20 07:02 Dose: 1 puff Documented by: Admin: 01/10/20 20:36 Dose: 1 puff Documented by: Admin: 01/10/20 06:44 Dose: 1 puff Documented by: Admin: 01/09/20 20:38 Dose: 1 puff Documented by: Admin: 01/09/20 08:11 Dose: 1 puff Documented by: LESLI Sodium Chloride (Saline Flush) 10 ml FLUSH ASDIRECTED PRN PRN Reason: Keep Vein Open Last Admin: 01/09/20 04:51 Dose: 10 ml Documented by: MOLLY Sodium Chloride (Saline Flush) 2.5 ml FLUSH ASDIRECTED PRN PRN Reason: Keep Vein Open Last Admin: 01/09/20 05:12 Dose: 2.5 ml Documented by: MOLLY Sodium Chloride ([place] Nasal [place]) 0 ml GEETA QID PRN PRN Reason: Congestion Last Admin: 01/10/20 11:33 Dose: 1 spray Documented by: CEDRIC Spironolactone (Aldactone) 50 mg PO DAILY VETO Last Admin: 01/11/20 08:08 Dose: 50 mg Documented by: Admin: 01/10/20 09:02 Dose: 50 mg Documented by: Admin: 01/09/20 08:12 Dose: 50 mg Documented by: LESLI
[2020-01-09] MEDS ORDERED: Magnesium Sulfate/Water 2 GM in Premix Bag 1 BAG IV ONE (07:46)
[2020-01-09] MEDS ORDERED: Sodium Chloride 0.9% 500 ML IV ONE (07:55)
[2020-01-09] MEDS: Fluticasone/Salmeterol 250-50 MCG Inhalation Powder 14/Diskus INH SCH ×2 (08:11→20:38)
[2020-01-09] MEDS: Albuterol/Ipratropium 4 GM Inhalation Spray INH PRN ×4 (08:11→20:43)
[2020-01-09] MEDS: Spironolactone 25 MG Tab PO SCH (08:12)
[2020-01-09] MEDS ORDERED: Enoxaparin 40 MG/0.4 ML Syringe SUBCUT SCH (09:00)
[2020-01-09] MEDS: Pantoprazole 40 MG in Sodium Chloride 0.9% 10 ML IV SCH (13:22)
[2020-01-09] MEDS: Acetaminophen 500 MG Tab PO PRN (19:26)
[2020-01-10] MEDS: Albuterol/Ipratropium 4 GM Inhalation Spray INH PRN ×5 (01:01→20:36)
[2020-01-10] MEDS: Codeine/guaiFENesin 10-100 MG/5 ML Syrup 5 ML Cup PO PRN ×2 (04:19→09:20)
[2020-01-10 06:28] LABS: BLOOD UREA NITROGEN,BUN 9 mg/dL (7.0-18.0); CHLORIDE,CL 108 mmol/L (98-107); GLUCOSE RANDOM 105 mg/dL (74-106); POTASSIUM,K 3.8 mmol/L (3.5-5.1); SODIUM,NA 141 mmol/L (136-145)
[2020-01-10] MEDS: Fluticasone/Salmeterol 250-50 MCG Inhalation Powder 14/Diskus INH SCH ×2 (06:44→20:36)
[2020-01-10] MEDS: cefTRIAXone 1 GM in Premix Bag 1 BAG IV SCH (08:30)
[2020-01-10] MEDS: Spironolactone 25 MG Tab PO SCH (09:02)
[2020-01-10] MEDS: Dexamethasone 4 MG Tab PO SCH (09:02)
[2020-01-10] MEDS: Enoxaparin 100 MG/1 ML Syringe SUBCUT SCH (09:04)
[2020-01-10] MEDS: Pantoprazole 40 MG in Sodium Chloride 0.9% 10 ML IV SCH (09:04)
[2020-01-10] MEDS: Azithromycin 500 MG in Sodium Chloride 0.9% 250 ML IV SCH (09:11)
[2020-01-10] MEDS: REMDESIVIR (EUA) 100 MG in Sodium Chloride 0.9% 100 ML IV SCH (10:39)
[2020-01-10] MEDS ORDERED: Sodium Chloride 0.65% Nasal Spray 45 ML Bottle NAS PRN (11:07)
[2020-01-10] MEDS ORDERED: Codeine/guaiFENesin 10-100 MG/5 ML Syrup 5 ML Cup PO SCH (11:15)
--- NOTE | 2020-01-10 11:35 | PCM.PN ---
<Miguel Boyd - Last Filed: 01/10/20 12:26> - General Info Date of Service: 01/10/20 Subjective Update: Bedside: c/o of persistent non-productive cough and mild fatigue; otherwise mentions dyspnea at rest improving Functional Status: Reports: Pain Controlled - Review of Systems General: Reports: Fatigue HEENT: Reports: No Symptoms Pulmonary: Reports: Cough. Denies: Shortness of Breath, Pleuritic Chest Pain, Sputum, Hemoptysis, Wheezing Cardiovascular: Reports: No Symptoms Gastrointestinal: Reports: No Symptoms Genitourinary: Reports: No Symptoms Musculoskeletal: Reports: No Symptoms Skin: Reports: No Symptoms Neurological: Reports: No Symptoms Psychiatric: Reports: No Symptoms - Patient Data Vitals - Most Recent: Last Vital Signs Temp 97.6 F 01/10/20 11:31 Pulse 89 01/10/20 11:31 Resp 18 01/10/20 11:31 BP 105/66 01/10/20 11:31 Pulse Ox 98 01/10/20 11:31 Weight - Most Recent: 95 kg I&O - Last 24 Hours: Intake & Output 01/09/20 01/10/20 01/10/20 22:59 06:59 14:59 Intake Total 1632 1450 Output Total 1650 1500 Balance -18 -50 Lab Results Last 24 Hours: Laboratory Results - last 24 hr 01/10/20 01/10/20 Range/Units 05:28 05:28 WBC 9.96 (4.0-11.0) K/uL RBC 4.24 L (4.30-5.90) M/uL Hgb 12.3 (12.0-16.0) g/dL Hct 37.4 (36.0-46.0) % MCV 88.2 (80.0-98.0) fL MCH 29.0 (27.0-32.0) pg MCHC 32.9 (31.0-37.0) g/dL RDW Std Deviation 46.5 (28.0-62.0) fl RDW Coeff of Sim 14 (11.0-15.0) % Plt Count 306 (150-400) K/uL MPV 9.80 (7.40-12.00) fL Neut % (Auto) 81.1 H (48.0-80.0) % Lymph % (Auto) 11.6 L (16.0-40.0) % [place] % (Auto) 7.1 (0.0-15.0) % Eos % (Auto) 0.1 (0.0-7.0) % Baso % (Auto) 0.1 (0.0-1.5) % Neut # (Auto) 8.1 H (1.4-5.7) K/uL Lymph # (Auto) 1.2 (0.6-2.4) K/uL [place] # (Auto) 0.7 (0.0-0.8) K/uL Eos # (Auto) 0.0 (0.0-0.7) K/uL Baso # (Auto) 0.0 (0.0-0.1) K/uL Nucleated RBC % 0.0 /100WBC Nucleated RBCs # 0 K/uL Sodium 141 (136-145) mmol/L Potassium 3.8 (3.5-5.1) mmol/L Chloride 108 H (98-107) mmol/L Carbon Dioxide 19.0 L (21.0-32.0) mmol/L BUN 9 (7.0-18.0) mg/dL Creatinine 0.9 (0.6-1.0) mg/dL Est Cr Clr Drug Dosing 66.67 mL/min Estimated GFR (MDRD) > 60.0 ml/min Glucose 105 (74-106) mg/dL Calcium 8.3 L (8.5-10.1) mg/dL Total Bilirubin 0.2 (0.2-1.0) mg/dL AST 41 H (15-37) IU/L ALT 59 (14-63) IU/L Alkaline Phosphatase 90 (46-116) U/L Total Protein 6.6 (6.4-8.2) g/dL Albumin 3.0 L (3.4-5.0) g/dL Globulin 3.6 (2.6-4.0) g/dL Albumin/Globulin Ratio 0.8 L (0.9-1.6) Victor Manuel Results Last 24 Hours: Microbiology 01/09/20 04:40 Aerobic Blood Culture - Preliminary Blood - Venous - Lab Draw NO GROWTH AFTER 1 DAY Anaerobic Blood Culture - Final 01/09/20 04:30 Aerobic Blood Culture - Preliminary Blood - Venous NO GROWTH AFTER 1 DAY Anaerobic Blood Culture - Preliminary NO GROWTH AFTER 1 DAY Med Orders - Current: Current Medications Acetaminophen (Tylenol Extra Strength) 500 mg PO Q6H PRN PRN Reason: Pain Last Admin: 01/09/20 19:26 Dose: 500 mg Documented by: Albuterol/Ipratropium (Combivent Respimat) 2 gm INH Q4H PRN PRN Reason: Shortness of Breath Last Admin: 01/10/20 11:28 Dose: 2 puff Documented by: Benzocaine/Menthol (Cepacol Sore Throat) 1 lozenge MUCMEM Q2H PRN PRN Reason: Cough/sore throat Benzonatate (Tessalon Perles) 100 mg PO TID [facility] Dexamethasone (Dexamethasone) 6 mg PO DAILY [facility] Last Admin: 01/10/20 09:02 Dose: 6 mg Documented by: Enoxaparin Sodium (Lovenox) 100 mg SUBCUT DAILY [facility] Last Admin: 01/10/20 09:04 Dose: 100 mg Documented by: Guaifenesin/Codeine Phosphate (Robitussin Ac) 5 ml PO Q4H [facility] Azithromycin 500 mg/ Sodium (Chloride) 250 mls @ 250 mls/hr IV DAILY [facility] Last Admin: 01/10/20 09:11 Dose: 250 mls/hr Documented by: Ceftriaxone Sodium/Dextrose 1 (gm/ Premix) 50 mls @ 100 mls/hr IV Q24H [facility] Last Admin: 01/10/20 08:30 Dose: 100 mls/hr Documented by: REMDESIVIR (EUA) 100 mg/ (Sodium Chloride) 100 mls @ 100 mls/hr IV Q24H [facility] Last Admin: 01/10/20 10:39 Dose: 100 mls/hr Documented by: Pantoprazole Sodium 40 mg/ (Sodium Chloride) 10 mls @ 300 mls/hr IV DAILY [facility] Last Admin: 01/10/20 09:04 Dose: 300 mls/hr Documented by: Fluticasone/Salmeterol (Advair Diskus 250-50) 1 puff INH BIDRT [facility] Last Admin: 01/10/20 06:44 Dose: 1 puff Documented by: Sodium Chloride (Saline Flush) 10 ml FLUSH ASDIRECTED PRN PRN Reason: Keep Vein Open Last Admin: 01/09/20 04:51 Dose: 10 ml Documented by: Sodium Chloride (Saline Flush) 2.5 ml FLUSH ASDIRECTED PRN PRN Reason: Keep Vein Open Last Admin: 01/09/20 05:12 Dose: 2.5 ml Documented by: Sodium Chloride ([place] Nasal [place]) 0 ml GEETA QID PRN PRN Reason: Congestion Last Admin: 01/10/20 11:33 Dose: 1 spray Documented by: Spironolactone (Aldactone) 50 mg PO DAILY [facility] Last Admin: 01/10/20 09:02 Dose: 50 mg Documented by: Discontinued Medications Albuterol/Ipratropium (Duoneb 3.0-0.5 Mg/3 Ml) 3 ml NEB ONETIME ONE Stop: 01/09/20 04:00 Last Admin: 01/09/20 04:50 Dose: 3 ml Documented by: Dexamethasone (Dexamethasone) 10 mg IVPUSH ONETIME ONE Stop: 01/09/20 04:46 Last Admin: 01/09/20 04:46 Dose: 10 mg Documented by: Dexamethasone (Dexamethasone) Confirm Administered Dose 10 mg .ROUTE .STK-MED ONE Stop: 01/09/20 04:44 Last Admin: 01/09/20 04:51 Dose: Not Given Documented by: Enoxaparin Sodium (Lovenox) 40 mg SUBCUT Q24H [facility] Last Admin: 01/09/20 08:24 Dose: 40 mg Documented by: Guaifenesin/Codeine Phosphate (Robitussin Ac) 5 ml PO Q4H PRN PRN Reason: Cough Last Admin: 01/10/20 09:20 Dose: 5 ml Documented by: Sodium Chloride (Normal Saline) 1,000 mls @ 999 mls/hr IV .Bolus ONE Stop: 01/09/20 04:59 Last Admin: 01/09/20 04:13 Dose: 999 mls/hr Documented by: Ceftriaxone Sodium/Dextrose 1 (gm/ Premix) 50 mls @ 100 mls/hr IV ONETIME ONE Stop: 01/09/20 05:17 Last Admin: 01/09/20 05:09 Dose: 100 mls/hr Documented by: Azithromycin 500 mg/ Sodium (Chloride) 250 mls @ 250 mls/hr IV ONETIME STA Stop: 01/09/20 05:48 Last Admin: 01/09/20 06:09 Dose: 250 mls/hr Documented by: Magnesium Sulfate 2 gm/ Premix 50 mls @ 50 mls/hr IV ONETIME ONE Stop: 01/09/20 08:45 Last Admin: 01/09/20 08:16 Dose: 50 mls/hr Documented by: Sodium Chloride (Normal Saline) 500 mls @ 500 mls/hr IV BOLUS ONE Stop: 01/09/20 08:54 Last Admin: 01/09/20 08:16 Dose: 500 mls/hr Documented by: REMDESIVIR (EUA) 200 mg/ (Sodium Chloride) 250 mls @ 250 mls/hr IV ONETIME ONE Stop: 01/09/20 10:29 Last Admin: 01/09/20 10:22 Dose: 250 mls/hr Documented by: Lorazepam (Ativan) 1 mg IVPUSH ONETIME ONE Stop: 01/09/20 04:00 Last Admin: 01/09/20 04:14 Dose: 1 mg Documented by: - Exam Quality Assessment: No: Supplemental Oxygen General: Alert, Oriented, Cooperative, No Acute Distress HEENT: EOMI Neck: Supple Lungs: Normal Respiratory Effort, Other (mild rhonchi noted in left lower lung field ) Cardiovascular: Regular Rate, Regular Rhythm GI/Abdominal Exam: Soft, Non-Tender Back Exam: Normal Inspection Skin: Warm, Dry Neurological: No New Focal Deficit Psy/Mental Status: Alert, Normal Affect, Normal Mood Sepsis Event Note - Evaluation Sepsis Screening Result: No Definite Risk - Focused Exam Vital Signs: Vital Signs Temp Pulse Resp BP Pulse Ox 01/10/20 11:31 97.6 F 89 18 105/66 98 01/10/20 08:00 97.1 F 80 19 117/64 97 01/10/20 03:38 97.6 F 74 19 117/72 98 01/10/20 00:02 98.3 F 78 20 113/61 97 - Problem List Review Problem List Initiated/Reviewed/Updated: Yes - My Orders Last 24 Hours: My Active Orders 01/09/20 11:30 Pantoprazole [ProTONIX IV] 40 mg Sodium Chloride 0.9% [Normal Saline] 10 ml IV DAILY 01/09/20 19:01 Acetaminophen [Tylenol Extra Strength] 500 mg PO Q6H PRN 01/10/20 09:00 Enoxaparin [Lovenox] 100 mg SUBCUT DAILY dexAMETHasone 6 mg PO DAILY 01/10/20 09:15 Remdesivir (Eua) [Remdesivir (EUA)] 100 mg Sodium Chloride 0.9% [Normal Saline] 100 ml IV Q24H 01/11/20 05:11 CBC WITH AUTO DIFF [HEME] AM COMPREHENSIVE METABOLIC PN,CMP [CHEM] AM 01/12/20 05:11 CBC WITH AUTO DIFF [HEME] AM COMPREHENSIVE METABOLIC PN,CMP [CHEM] AM - Plan Plan:: Assessment: 1. Sepsis in setting of + Covid : improving 2. Hypoxic respiratory failure secondary to above:improving 3. PMH :asthma and previous tobacco abuser Plan. Admit to inpatient. Full code. I/o's per routine DVT prophylaxis GI prophylaxis: pantoprazole 40 daily 1. COVID: Continue Remdesevir 100 today, Paperwork and consent signed. risks/benefits of medication explained to patient. Dexamethasone 6 mg Daily; Continue O2 support PRN; maintain sats >92% Continue to monitor fluid status; bolus 250 -500 cc PRN ; encourage PO intake Coughing fits: schedule codeine cough suppressant and Tessalon Perles. encourage proning position and continue to monitor respiratory status. Full dose/weight based dose of Lovenox secondary to COVID/hypercoagulability Concerns for CAP/superimposed: continue Azithro+CTX ; procalcitonin ordered via ED; can titrate off if needed; most likely will complete course based off of clinical picture Continue Combivent PRN [id number] <Staci Saucedo - Last Filed: 01/11/20 12:59> - Patient Data Vitals - Most Recent: Last Vital Signs Temp 36.5 C 01/11/20 11:37 Pulse 65 01/11/20 11:37 Resp 17 01/11/20 11:37 BP 119/61 01/11/20 11:37 Pulse Ox 96 01/11/20 11:37 I&O - Last 24 Hours: Intake & Output 01/10/20 01/11/20 01/11/20 22:59 06:59 14:59 Intake Total 1780 1100 Output Total 2000 700 Balance -220 400 Lab Results Last 24 Hours: Laboratory Results - last 24 hr 01/11/20 01/11/20 Range/Units 05:20 05:20 WBC 9.13 (4.0-11.0) K/uL RBC 4.31 (4.30-5.90) M/uL Hgb 12.3 (12.0-16.0) g/dL Hct 37.8 (36.0-46.0) % MCV 87.7 (80.0-98.0) fL MCH 28.5 (27.0-32.0) pg MCHC 32.5 (31.0-37.0) g/dL RDW Std Deviation 46.0 (28.0-62.0) fl RDW Coeff of Sim 14 (11.0-15.0) % Plt Count 362 (150-400) K/uL MPV 9.80 (7.40-12.00) fL Neut % (Auto) 75.9 (48.0-80.0) % Lymph % (Auto) 14.9 L (16.0-40.0) % [place] % (Auto) 9.1 (0.0-15.0) % Eos % (Auto) 0.0 (0.0-7.0) % Baso % (Auto) 0.1 (0.0-1.5) % Neut # (Auto) 6.9 H (1.4-5.7) K/uL Lymph # (Auto) 1.4 (0.6-2.4) K/uL [place] # (Auto) 0.8 (0.0-0.8) K/uL Eos # (Auto) 0.0 (0.0-0.7) K/uL Baso # (Auto) 0.0 (0.0-0.1) K/uL Nucleated RBC % 0.0 /100WBC Nucleated RBCs # 0 K/uL Sodium 141 (136-145) mmol/L Potassium 3.8 (3.5-5.1) mmol/L Chloride 106 (98-107) mmol/L Carbon Dioxide 22.2 (21.0-32.0) mmol/L BUN 13 (7.0-18.0) mg/dL Creatinine 0.9 (0.6-1.0) mg/dL Est Cr Clr Drug Dosing 66.67 mL/min Estimated GFR (MDRD) > 60.0 ml/min Glucose 97 (74-106) mg/dL Calcium 8.8 (8.5-10.1) mg/dL Total Bilirubin 0.3 (0.2-1.0) mg/dL AST 40 H (15-37) IU/L ALT 72 H (14-63) IU/L Alkaline Phosphatase 90 (46-116) U/L Total Protein 6.8 (6.4-8.2) g/dL Albumin 3.2 L (3.4-5.0) g/dL Globulin 3.6 (2.6-4.0) g/dL Albumin/Globulin Ratio 0.9 (0.9-1.6) Victor Manuel Results Last 24 Hours: Microbiology 01/09/20 04:40 Aerobic Blood Culture - Preliminary Blood - Venous - Lab Draw NO GROWTH AFTER 2 DAYS Anaerobic Blood Culture - Final 01/09/20 04:30 Aerobic Blood Culture - Preliminary Blood - Venous NO GROWTH AFTER 2 DAYS Anaerobic Blood Culture - Preliminary NO GROWTH AFTER 2 DAYS Med Orders - Current: Current Medications Acetaminophen (Tylenol Extra Strength) 500 mg PO Q6H PRN PRN Reason: Pain Last Admin: 01/11/20 03:38 Dose: 500 mg Documented by: Albuterol/Ipratropium (Combivent Respimat) 0 gm INH Q4H [facility] Last Admin: 01/11/20 11:09 Dose: 1 puff Documented by: Benzocaine/Menthol (Cepacol Sore Throat) 1 lozenge MUCMEM Q2H PRN PRN Reason: Cough/sore throat Last Admin: 01/10/20 16:49 Dose: 1 lozenge Documented by: Benzonatate (Tessalon Perles) 100 mg PO TID [facility] Last Admin: 01/11/20 07:02 Dose: 100 mg Documented by: Dexamethasone (Dexamethasone) 6 mg PO DAILY [facility] Last Admin: 01/11/20 08:08 Dose: 6 mg Documented by: Enoxaparin Sodium (Lovenox) 100 mg SUBCUT DAILY [facility] Last Admin: 01/11/20 08:15 Dose: 100 mg Documented by: Guaifenesin/Codeine Phosphate (Robitussin Ac) 5 ml PO Q3H [facility] Last Admin: 01/11/20 11:38 Dose: 5 ml Documented by: Azithromycin 500 mg/ Sodium (Chloride) 250 mls @ 250 mls/hr IV DAILY [facility] Last Admin: 01/11/20 09:01 Dose: 250 mls/hr Documented by: Ceftriaxone Sodium/Dextrose 1 (gm/ Premix) 50 mls @ 100 mls/hr IV Q24H [facility] Last Admin: 01/11/20 08:09 Dose: 100 mls/hr Documented by: REMDESIVIR (EUA) 100 mg/ (Sodium Chloride) 100 mls @ 100 mls/hr IV Q24H [facility] Last Admin: 01/11/20 10:11 Dose: 100 mls/hr Documented by: Pantoprazole Sodium 40 mg/ (Sodium Chloride) 10 mls @ 300 mls/hr IV DAILY [facility] Last Admin: 01/11/20 08:10 Dose: 300 mls/hr Documented by: Fluticasone/Salmeterol (Advair Diskus 250-50) 1 puff INH BIDRT [facility] Last Admin: 01/11/20 07:02 Dose: 1 puff Documented by: Sodium Chloride (Saline Flush) 10 ml FLUSH ASDIRECTED PRN PRN Reason: Keep Vein Open Last Admin: 01/09/20 04:51 Dose: 10 ml Documented by: Sodium Chloride (Saline Flush) 2.5 ml FLUSH ASDIRECTED PRN PRN Reason: Keep Vein Open Last Admin: 01/09/20 05:12 Dose: 2.5 ml Documented by: Sodium Chloride ([place] Nasal [place]) 0 ml GEETA QID PRN PRN Reason: Congestion Last Admin: 01/10/20 11:33 Dose: 1 spray Documented by: Spironolactone (Aldactone) 50 mg PO DAILY [facility] Last Admin: 01/11/20 08:08 Dose: 50 mg Documented by: Discontinued Medications Albuterol/Ipratropium (Duoneb 3.0-0.5 Mg/3 Ml) 3 ml NEB ONETIME ONE Stop: 01/09/20 04:00 Last Admin: 01/09/20 04:50 Dose: 3 ml Documented by: Albuterol/Ipratropium (Combivent Respimat) 2 gm INH Q4H PRN PRN Reason: Shortness of Breath Last Admin: 01/11/20 07:04 Dose: 1 puff Documented by: Albuterol/Ipratropium (Combivent Respimat) 0 gm INH Q4H [facility] Last Admin: 01/11/20 11:19 Dose: Not Given Documented by: Benzonatate (Tessalon Perles) 100 mg PO TID [facility] Last Admin: 01/10/20 12:04 Dose: Not Given Documented by: Dexamethasone (Dexamethasone) 10 mg IVPUSH ONETIME ONE Stop: 01/09/20 04:46 Last Admin: 01/09/20 04:46 Dose: 10 mg Documented by: Dexamethasone (Dexamethasone) Confirm Administered Dose 10 mg .ROUTE .STK-MED ONE Stop: 01/09/20 04:44 Last Admin: 01/09/20 04:51 Dose: Not Given Documented by: Enoxaparin Sodium (Lovenox) 40 mg SUBCUT Q24H [facility] Last Admin: 01/09/20 08:24 Dose: 40 mg Documented by: Guaifenesin/Codeine Phosphate (Robitussin Ac) 5 ml PO Q4H PRN PRN Reason: Cough Last Admin: 01/10/20 09:20 Dose: 5 ml Documented by: Guaifenesin/Codeine Phosphate (Robitussin Ac) 5 ml PO Q4H [facility] Last Admin: 01/10/20 12:04 Dose: Not Given Documented by: Guaifenesin/Codeine Phosphate (Robitussin Ac) 5 ml PO Q4H [facility] Last Admin: 01/11/20 08:08 Dose: 5 ml Documented by: Sodium Chloride (Normal Saline) 1,000 mls @ 999 mls/hr IV .Bolus ONE Stop: 01/09/20 04:59 Last Admin: 01/09/20 04:13 Dose: 999 mls/hr Documented by: Ceftriaxone Sodium/Dextrose 1 (gm/ Premix) 50 mls @ 100 mls/hr IV ONETIME ONE Stop: 01/09/20 05:17 Last Admin: 01/09/20 05:09 Dose: 100 mls/hr Documented by: Azithromycin 500 mg/ Sodium (Chloride) 250 mls @ 250 mls/hr IV ONETIME STA Stop: 01/09/20 05:48 Last Admin: 01/09/20 06:09 Dose: 250 mls/hr Documented by: Magnesium Sulfate 2 gm/ Premix 50 mls @ 50 mls/hr IV ONETIME ONE Stop: 01/09/20 08:45 Last Admin: 01/09/20 08:16 Dose: 50 mls/hr Documented by: Sodium Chloride (Normal Saline) 500 mls @ 500 mls/hr IV BOLUS ONE Stop: 01/09/20 08:54 Last Admin: 01/09/20 08:16 Dose: 500 mls/hr Documented by: REMDESIVIR (EUA) 200 mg/ (Sodium Chloride) 250 mls @ 250 mls/hr IV ONETIME ONE Stop: 01/09/20 10:29 Last Admin: 01/09/20 10:22 Dose: 250 mls/hr Documented by: Lorazepam (Ativan) 1 mg IVPUSH ONETIME ONE Stop: 01/09/20 04:00 Last Admin: 01/09/20 04:14 Dose: 1 mg Documented by: Sepsis Event Note - Focused Exam Vital Signs: Vital Signs Temp Pulse Resp BP Pulse Ox 01/11/20 11:37 36.5 C 65 17 119/61 96 01/11/20 08:01 36.3 C 69 18 114/72 97 01/11/20 03:17 36.7 C 88 20 120/75 99 - Plan Plan:: I have seen and evaluated the patient and agree with the residents note unless specified in my note
[2020-01-10] MEDS: Benzonatate 100 MG Cap PO SCH ×4 (12:04→21:17)
[2020-01-10] MEDS: Codeine/guaiFENesin 10-100 MG/5 ML Syrup 5 ML Cup PO SCH ×3 (12:06→21:17)
[2020-01-10] MEDS: Benzocaine/Cetylpyridinium/Menthol Lozenge MUCMEM PRN (16:49)
[2020-01-11] MEDS: Codeine/guaiFENesin 10-100 MG/5 ML Syrup 5 ML Cup PO SCH ×8 (00:06→22:05)
[2020-01-11] MEDS: Acetaminophen 500 MG Tab PO PRN (03:38)
[2020-01-11] MEDS: Albuterol/Ipratropium 4 GM Inhalation Spray INH PRN ×2 (03:40→07:04)
[2020-01-11 06:27] LABS: BLOOD UREA NITROGEN,BUN 13 mg/dL (7.0-18.0); CARBON DIOXIDE,CO2 22.2 mmol/L (21.0-32.0); CHLORIDE,CL 106 mmol/L (98-107); GLUCOSE RANDOM 97 mg/dL (74-106); POTASSIUM,K 3.8 mmol/L (3.5-5.1); SODIUM,NA 141 mmol/L (136-145)
[2020-01-11] MEDS: Benzonatate 100 MG Cap PO SCH ×4 (07:01→22:05)
[2020-01-11] MEDS: Fluticasone/Salmeterol 250-50 MCG Inhalation Powder 14/Diskus INH SCH ×2 (07:02→21:19)
[2020-01-11] MEDS: Dexamethasone 4 MG Tab PO SCH (08:08)
[2020-01-11] MEDS: Spironolactone 25 MG Tab PO SCH (08:08)
[2020-01-11] MEDS: cefTRIAXone 1 GM in Premix Bag 1 BAG IV SCH (08:09)
[2020-01-11] MEDS: Pantoprazole 40 MG in Sodium Chloride 0.9% 10 ML IV SCH (08:10)
[2020-01-11] MEDS: Enoxaparin 100 MG/1 ML Syringe SUBCUT SCH (08:15)
--- NOTE | 2020-01-11 08:40 | PCM.PN ---
- General Info Date of Service: 01/11/20 Subjective Update: Bedside: endorsing feeling cough has not improved; still no-productive and endorsing some SOB at rest. +fatigue - Review of Systems General: Reports: Fatigue HEENT: Reports: No Symptoms Pulmonary: Reports: Shortness of Breath, Cough. Denies: Sputum, Wheezing Cardiovascular: Reports: No Symptoms Gastrointestinal: Reports: No Symptoms Genitourinary: Reports: No Symptoms Musculoskeletal: Reports: No Symptoms Skin: Reports: No Symptoms Neurological: Reports: No Symptoms - Patient Data Vitals - Most Recent: Last Vital Signs Temp 97.4 F 01/11/20 08:01 Pulse 69 01/11/20 08:01 Resp 18 01/11/20 08:01 BP 114/72 01/11/20 08:01 Pulse Ox 97 01/11/20 08:01 Weight - Most Recent: 95 kg I&O - Last 24 Hours: Intake & Output 01/10/20 01/11/20 01/11/20 22:59 06:59 14:59 Intake Total 1780 1100 Output Total 2000 700 Balance -220 400 Lab Results Last 24 Hours: Laboratory Results - last 24 hr 01/11/20 01/11/20 Range/Units 05:20 05:20 WBC 9.13 (4.0-11.0) K/uL RBC 4.31 (4.30-5.90) M/uL Hgb 12.3 (12.0-16.0) g/dL Hct 37.8 (36.0-46.0) % MCV 87.7 (80.0-98.0) fL MCH 28.5 (27.0-32.0) pg MCHC 32.5 (31.0-37.0) g/dL RDW Std Deviation 46.0 (28.0-62.0) fl RDW Coeff of Sim 14 (11.0-15.0) % Plt Count 362 (150-400) K/uL MPV 9.80 (7.40-12.00) fL Neut % (Auto) 75.9 (48.0-80.0) % Lymph % (Auto) 14.9 L (16.0-40.0) % [place] % (Auto) 9.1 (0.0-15.0) % Eos % (Auto) 0.0 (0.0-7.0) % Baso % (Auto) 0.1 (0.0-1.5) % Neut # (Auto) 6.9 H (1.4-5.7) K/uL Lymph # (Auto) 1.4 (0.6-2.4) K/uL [place] # (Auto) 0.8 (0.0-0.8) K/uL Eos # (Auto) 0.0 (0.0-0.7) K/uL Baso # (Auto) 0.0 (0.0-0.1) K/uL Nucleated RBC % 0.0 /100WBC Nucleated RBCs # 0 K/uL Sodium 141 (136-145) mmol/L Potassium 3.8 (3.5-5.1) mmol/L Chloride 106 (98-107) mmol/L Carbon Dioxide 22.2 (21.0-32.0) mmol/L BUN 13 (7.0-18.0) mg/dL Creatinine 0.9 (0.6-1.0) mg/dL Est Cr Clr Drug Dosing 66.67 mL/min Estimated GFR (MDRD) > 60.0 ml/min Glucose 97 (74-106) mg/dL Calcium 8.8 (8.5-10.1) mg/dL Total Bilirubin 0.3 (0.2-1.0) mg/dL AST 40 H (15-37) IU/L ALT 72 H (14-63) IU/L Alkaline Phosphatase 90 (46-116) U/L Total Protein 6.8 (6.4-8.2) g/dL Albumin 3.2 L (3.4-5.0) g/dL Globulin 3.6 (2.6-4.0) g/dL Albumin/Globulin Ratio 0.9 (0.9-1.6) Victor Manuel Results Last 24 Hours: Microbiology 01/09/20 04:40 Aerobic Blood Culture - Preliminary Blood - Venous - Lab Draw NO GROWTH AFTER 2 DAYS Anaerobic Blood Culture - Final 01/09/20 04:30 Aerobic Blood Culture - Preliminary Blood - Venous NO GROWTH AFTER 2 DAYS Anaerobic Blood Culture - Preliminary NO GROWTH AFTER 2 DAYS Med Orders - Current: Current Medications Acetaminophen (Tylenol Extra Strength) 500 mg PO Q6H PRN PRN Reason: Pain Last Admin: 01/11/20 03:38 Dose: 500 mg Documented by: Albuterol/Ipratropium (Combivent Respimat) 2 gm INH Q4H PRN PRN Reason: Shortness of Breath Last Admin: 01/11/20 07:04 Dose: 1 puff Documented by: Benzocaine/Menthol (Cepacol Sore Throat) 1 lozenge MUCMEM Q2H PRN PRN Reason: Cough/sore throat Last Admin: 01/10/20 16:49 Dose: 1 lozenge Documented by: Benzonatate (Tessalon Perles) 100 mg PO TID [facility] Last Admin: 01/11/20 07:02 Dose: 100 mg Documented by: Dexamethasone (Dexamethasone) 6 mg PO DAILY [facility] Last Admin: 01/11/20 08:08 Dose: 6 mg Documented by: Enoxaparin Sodium (Lovenox) 100 mg SUBCUT DAILY [facility] Last Admin: 01/11/20 08:15 Dose: 100 mg Documented by: Guaifenesin/Codeine Phosphate (Robitussin Ac) 5 ml PO Q4H [facility] Last Admin: 01/11/20 08:08 Dose: 5 ml Documented by: Azithromycin 500 mg/ Sodium (Chloride) 250 mls @ 250 mls/hr IV DAILY [facility] Last Admin: 01/10/20 09:11 Dose: 250 mls/hr Documented by: Ceftriaxone Sodium/Dextrose 1 (gm/ Premix) 50 mls @ 100 mls/hr IV Q24H [facility] Last Admin: 01/11/20 08:09 Dose: 100 mls/hr Documented by: REMDESIVIR (EUA) 100 mg/ (Sodium Chloride) 100 mls @ 100 mls/hr IV Q24H [facility] Last Admin: 01/10/20 10:39 Dose: 100 mls/hr Documented by: Pantoprazole Sodium 40 mg/ (Sodium Chloride) 10 mls @ 300 mls/hr IV DAILY [facility] Last Admin: 01/11/20 08:10 Dose: 300 mls/hr Documented by: Fluticasone/Salmeterol (Advair Diskus 250-50) 1 puff INH BIDRT [facility] Last Admin: 01/11/20 07:02 Dose: 1 puff Documented by: Sodium Chloride (Saline Flush) 10 ml FLUSH ASDIRECTED PRN PRN Reason: Keep Vein Open Last Admin: 01/09/20 04:51 Dose: 10 ml Documented by: Sodium Chloride (Saline Flush) 2.5 ml FLUSH ASDIRECTED PRN PRN Reason: Keep Vein Open Last Admin: 01/09/20 05:12 Dose: 2.5 ml Documented by: Sodium Chloride ([place] Nasal [place]) 0 ml GEETA QID PRN PRN Reason: Congestion Last Admin: 01/10/20 11:33 Dose: 1 spray Documented by: Spironolactone (Aldactone) 50 mg PO DAILY [facility] Last Admin: 01/11/20 08:08 Dose: 50 mg Documented by: Discontinued Medications Albuterol/Ipratropium (Duoneb 3.0-0.5 Mg/3 Ml) 3 ml NEB ONETIME ONE Stop: 01/09/20 04:00 Last Admin: 01/09/20 04:50 Dose: 3 ml Documented by: Benzonatate (Tessalon Perles) 100 mg PO TID [facility] Last Admin: 01/10/20 12:04 Dose: Not Given Documented by: Dexamethasone (Dexamethasone) 10 mg IVPUSH ONETIME ONE Stop: 01/09/20 04:46 Last Admin: 01/09/20 04:46 Dose: 10 mg Documented by: Dexamethasone (Dexamethasone) Confirm Administered Dose 10 mg .ROUTE .STK-MED ONE Stop: 01/09/20 04:44 Last Admin: 01/09/20 04:51 Dose: Not Given Documented by: Enoxaparin Sodium (Lovenox) 40 mg SUBCUT Q24H [facility] Last Admin: 01/09/20 08:24 Dose: 40 mg Documented by: Guaifenesin/Codeine Phosphate (Robitussin Ac) 5 ml PO Q4H PRN PRN Reason: Cough Last Admin: 01/10/20 09:20 Dose: 5 ml Documented by: Guaifenesin/Codeine Phosphate (Robitussin Ac) 5 ml PO Q4H [facility] Last Admin: 01/10/20 12:04 Dose: Not Given Documented by: Sodium Chloride (Normal Saline) 1,000 mls @ 999 mls/hr IV .Bolus ONE Stop: 01/09/20 04:59 Last Admin: 01/09/20 04:13 Dose: 999 mls/hr Documented by: Ceftriaxone Sodium/Dextrose 1 (gm/ Premix) 50 mls @ 100 mls/hr IV ONETIME ONE Stop: 01/09/20 05:17 Last Admin: 01/09/20 05:09 Dose: 100 mls/hr Documented by: Azithromycin 500 mg/ Sodium (Chloride) 250 mls @ 250 mls/hr IV ONETIME STA Stop: 01/09/20 05:48 Last Admin: 01/09/20 06:09 Dose: 250 mls/hr Documented by: Magnesium Sulfate 2 gm/ Premix 50 mls @ 50 mls/hr IV ONETIME ONE Stop: 01/09/20 08:45 Last Admin: 01/09/20 08:16 Dose: 50 mls/hr Documented by: Sodium Chloride (Normal Saline) 500 mls @ 500 mls/hr IV BOLUS ONE Stop: 01/09/20 08:54 Last Admin: 01/09/20 08:16 Dose: 500 mls/hr Documented by: REMDESIVIR (EUA) 200 mg/ (Sodium Chloride) 250 mls @ 250 mls/hr IV ONETIME ONE Stop: 01/09/20 10:29 Last Admin: 01/09/20 10:22 Dose: 250 mls/hr Documented by: Lorazepam (Ativan) 1 mg IVPUSH ONETIME ONE Stop: 01/09/20 04:00 Last Admin: 01/09/20 04:14 Dose: 1 mg Documented by: - Exam Quality Assessment: Supplemental Oxygen General: Alert, Oriented, Cooperative, No Acute Distress HEENT: Pupils Reactive, EOMI Neck: Supple Lungs: Other (mild expiratory wheeze; diominshed sounds in upper lobes ) Cardiovascular: Regular Rate, Regular Rhythm GI/Abdominal Exam: Normal Bowel Sounds, Soft, Non-Tender Back Exam: Full Range of Motion Extremities: Normal Inspection Skin: Warm Neurological: No New Focal Deficit Psy/Mental Status: Alert, Normal Affect, Normal Mood Sepsis Event Note - Evaluation Sepsis Screening Result: No Definite Risk - Focused Exam Vital Signs: Vital Signs Temp Pulse Resp BP Pulse Ox 01/11/20 08:01 97.4 F 69 18 114/72 97 01/11/20 03:17 98.0 F 88 20 120/75 99 01/11/20 00:00 97.2 F 82 20 115/69 99 - Problem List Review Problem List Initiated/Reviewed/Updated: Yes - My Orders Last 24 Hours: My Active Orders 01/10/20 09:00 Enoxaparin [Lovenox] 100 mg SUBCUT DAILY dexAMETHasone 6 mg PO DAILY 01/10/20 09:15 Remdesivir (Eua) [Remdesivir (EUA)] 100 mg Sodium Chloride 0.9% [Normal Saline] 100 ml IV Q24H 01/12/20 05:11 CBC WITH AUTO DIFF [HEME] AM COMPREHENSIVE METABOLIC PN,CMP [CHEM] AM - Plan Plan:: Assessment: 1. Sepsis in setting of + Covid : improving 2. Hypoxic respiratory failure secondary to above:improving 3. PMH :asthma and previous tobacco abuser Plan. Admit to inpatient. Full code. I/o's per routine DVT prophylaxis GI prophylaxis: pantoprazole 40 daily 1. COVID: Continue Remdesevir 100 today, Paperwork and consent signed. risks/benefits of medication explained to patient. Dexamethasone 6 mg Daily; Continue O2 support PRN; maintain sats >92% Continue to monitor fluid status; bolus 250 -500 cc PRN ; encourage PO intake Coughing fits: schedule codeine cough suppressant and Tessalon Perles at [id number] encourage proning position and continue to monitor respiratory status. Will walking o2 trial this AM and assess for o2 requirements ; still having significant coughing fits + fatigue; will continue to monitor today. Full dose/weight based dose of Lovenox secondary to COVID/hypercoagulability Concerns for CAP/superimposed: continue Azithro+CTX ; procalcitonin ordered via ED; can titrate off if needed; most likely will complete course based off of clinical picture Continue Combivent PRN [id number]
[2020-01-11] MEDS: Azithromycin 500 MG in Sodium Chloride 0.9% 250 ML IV SCH (09:01)
[2020-01-11] MEDS: REMDESIVIR (EUA) 100 MG in Sodium Chloride 0.9% 100 ML IV SCH (10:11)
[2020-01-11] MEDS ORDERED: Albuterol/Ipratropium 4 GM Inhalation Spray INH SCH (10:45)
[2020-01-11] MEDS: Albuterol/Ipratropium 4 GM Inhalation Spray INH SCH ×4 (11:09→21:19)
[2020-01-11] MEDS ORDERED: methylPREDNISolone Sodium Succinate 40 MG/1 ML SDV IVPUSH ONE (16:31)
[2020-01-11] MEDS ORDERED: methylPREDNISolone Sodium Succinate 125 MG/2 ML SDV IM ONE (16:32)
[2020-01-11] MEDS: Benzocaine/Cetylpyridinium/Menthol Lozenge MUCMEM PRN ×2 (16:43→23:28)
[2020-01-11] MEDS ORDERED: LORazepam 2 MG/ML SDV IVPUSH ONE (18:11)
--- NOTE | 2020-01-11 19:31 | CR ---
Chest: Portable view of the chest was obtained. Comparison: Prior chest x-ray of 01/09/20. Heart size and mediastinum are normal. Better aeration of the lung bases when compared to prior study is seen. No definite acute parenchymal change is seen. Bony structures are grossly intact. Impression: 1. Nothing acute is appreciated on portable chest x-ray. Diagnostic code #1 This report was dictated in MDT
[2020-01-12] MEDS: Codeine/guaiFENesin 10-100 MG/5 ML Syrup 5 ML Cup PO SCH ×4 (01:53→11:08)
[2020-01-12] MEDS: Albuterol/Ipratropium 4 GM Inhalation Spray INH SCH ×3 (01:54→09:09)
[2020-01-12 07:11] LABS: BLOOD UREA NITROGEN,BUN 11 mg/dL (7.0-18.0); CARBON DIOXIDE,CO2 20.3 mmol/L (21.0-32.0); CHLORIDE,CL 105 mmol/L (98-107); GLUCOSE RANDOM 121 mg/dL (74-106); POTASSIUM,K 3.8 mmol/L (3.5-5.1); SODIUM,NA 140 mmol/L (136-145)
[2020-01-12] MEDS: Fluticasone/Salmeterol 250-50 MCG Inhalation Powder 14/Diskus INH SCH (07:42)
[2020-01-12] MEDS: Benzonatate 100 MG Cap PO SCH (07:42)
[2020-01-12] MEDS: Benzocaine/Cetylpyridinium/Menthol Lozenge MUCMEM PRN ×2 (07:54→11:08)
[2020-01-12] MEDS: cefTRIAXone 1 GM in Premix Bag 1 BAG IV SCH (07:55)
--- NOTE | 2020-01-12 08:29 | PCM.DCSUM1 ---
Discharge Summary - Hospital Course Free Text/Narrative:: 44 y.o female w. PMH of Asthma Presenting with increasing shortness of breath and headache for the past couple of days. 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 For the past 2 nights she has been feeling short of breath at rest with increasing nonproductive cough and a heavy chest sensation. Denies any fevers, chills, body aches however does feel fatigued. Did use her home medication of duo nebs for asthma but did not find any relief. ED course; chest x-ray consistent with a bilateral lower lobe infiltrates concerning for early COVID. COVID positive on swab. Requiring 2 L O2. Concerns for bacterial superinfection in light of her history of asthma and previous tobacco abuse; started on azithromycin and ceftriaxone. Hospital course :started on Azithromycin+ CTX, Remdesivir, codeine cough suppressant and ultimately weaned off o2 supplementation 2 days prior to discharge. Afebrile and o2 sats , even on ambulation, greater than 96%; otherwise only major complaint is persistent non-productive cough despite codeine cough suppressant and Tessalon Perles. Day of discharge: pt endorsed feeling better and requesting discharge. Discharged on Levaquin for additional 5 days, dexamethasone 6 mg to complete 10 day course, Tessalon Perles and PRN codeine cough suppressant, and daily ASA 81 mg x 30 days. Advised to proceed to ED if breathing becomes labored or CP develops. Advised to quarantine home for total of 10-14 days. Acapella flutter valve also provided to patient to help with coughing fits; advised to continue using at home neb treatments and albuterol inhaler PRN and controller medication. - Discharge Data Discharge Date: 01/12/20 Discharge Disposition: Home, Self-Care 01 Condition: Fair - Referral to Home Health Primary Care Physician: PCP None - Patient Instructions Diet: Usual Diet as Tolerated Notify Provider of: Fever Other/Special Instructions: Please follow up with your PCP when appropraite. You are COVID positive: this means that you are infectious and can spread COVID to others; please stay at home for the next 10-14 days to help preventing spread. You should also stay away from others if you are actively symptomatic. Please immediately proceed to emergency department if your breathing becomes labored or you are having chest pain. - Discharge Plan *PRESCRIPTION DRUG MONITORING PROGRAM REVIEWED*: No *COPY OF PRESCRIPTION DRUG MONITORING REPORT IN PATIENT LASHAWN: No Prescriptions/Med Rec: Aspirin [Aspirin EC] 81 mg PO DAILY 30 Days #30 tablet. dexAMETHasone [Dexamethasone] 6 mg PO DAILY 7 Days #7 tablet levoFLOXacin [Levaquin] 750 mg PO DAILY 5 Days #5 tablet Codeine/guaiFENesin [Robitussin AC] 5 ml PO Q4H PRN 7 Days #210 ml PRN Reason: Cough Benzonatate [Tessalon Perle] 100 mg PO TID PRN 7 Days #21 capsule PRN Reason: Cough Home Medications: Home Meds Albuterol [Proair HFA] 1 puff IH Q4H PRN 12/17/19 [History] Fluticasone Propion/Salmeterol [Advair 250-50 Diskus] 1 each IH BID 12/17/19 [History] Spironolactone 50 mg PO DAILY 12/17/19 [History] Acetaminophen [Tylenol Extra Strength] 500 mg PO Q6H PRN tablet 01/12/20 [Rx] Albuterol/Ipratropium [Combivent Respimat] 0 gm INH Q4H inhaler 01/12/20 [Rx] Aspirin [Aspirin EC] 81 mg PO DAILY 30 Days #30 tablet. 01/12/20 [Rx] Benzonatate [Tessalon Perle] 100 mg PO TID PRN 7 Days #21 capsule 01/12/20 [Rx] Codeine/guaiFENesin [Robitussin AC] 5 ml PO Q4H PRN 7 Days #210 ml 01/12/20 [Rx] dexAMETHasone [Dexamethasone] 6 mg PO DAILY 7 Days #7 tablet 01/12/20 [Rx] levoFLOXacin [Levaquin] 750 mg PO DAILY 5 Days #5 tablet 01/12/20 [Rx] Oxygen Therapy Mode: Room Air - Discharge Summary/Plan Comment DC Time >30 min.: No - Patient Data Vitals - Most Recent: Last Vital Signs Temp 97.9 F 01/12/20 08:00 Pulse 77 01/12/20 08:00 Resp 18 01/12/20 08:00 BP 113/74 01/12/20 08:00 Pulse Ox 98 01/12/20 08:00 Weight - Most Recent: 95 kg I&O - Last 24 hours: Intake & Output 01/11/20 01/12/20 01/12/20 22:59 06:59 14:59 Intake Total 1610 1800 Output Total 950 1600 Balance 660 200 Lab Results - Last 24 hrs: Laboratory Results - last 24 hr 01/12/20 01/12/20 Range/Units 06:15 06:28 WBC 11.84 H (4.0-11.0) K/uL RBC 4.32 (4.30-5.90) M/uL Hgb 12.8 (12.0-16.0) g/dL Hct 37.8 (36.0-46.0) % MCV 87.5 (80.0-98.0) fL MCH 29.6 (27.0-32.0) pg MCHC 33.9 (31.0-37.0) g/dL RDW Std Deviation 45.2 (28.0-62.0) fl RDW Coeff of Sim 14 (11.0-15.0) % Plt Count 393 (150-400) K/uL MPV 9.50 (7.40-12.00) fL Neut % (Auto) 82.1 H (48.0-80.0) % Lymph % (Auto) 12.4 L (16.0-40.0) % [place] % (Auto) 5.3 (0.0-15.0) % Eos % (Auto) 0.0 (0.0-7.0) % Baso % (Auto) 0.2 (0.0-1.5) % Neut # (Auto) 9.7 H (1.4-5.7) K/uL Lymph # (Auto) 1.5 (0.6-2.4) K/uL [place] # (Auto) 0.6 (0.0-0.8) K/uL Eos # (Auto) 0.0 (0.0-0.7) K/uL Baso # (Auto) 0.0 (0.0-0.1) K/uL Nucleated RBC % 0.0 /100WBC Nucleated RBCs # 0 K/uL Sodium 140 (136-145) mmol/L Potassium 3.8 (3.5-5.1) mmol/L Chloride 105 (98-107) mmol/L Carbon Dioxide 20.3 L (21.0-32.0) mmol/L BUN 11 (7.0-18.0) mg/dL Creatinine 0.8 (0.6-1.0) mg/dL Est Cr Clr Drug Dosing 75.01 mL/min Estimated GFR (MDRD) > 60.0 ml/min Glucose 121 H (74-106) mg/dL Calcium 9.0 (8.5-10.1) mg/dL Total Bilirubin 0.2 (0.2-1.0) mg/dL AST 62 H (15-37) IU/L ALT 121 H (14-63) IU/L Alkaline Phosphatase 90 (46-116) U/L Total Protein 7.0 (6.4-8.2) g/dL Albumin 3.2 L (3.4-5.0) g/dL Globulin 3.8 (2.6-4.0) g/dL Albumin/Globulin Ratio 0.8 L (0.9-1.6) NICKI Results - Last 24 hrs: Microbiology 01/09/20 04:40 Aerobic Blood Culture - Preliminary Blood - Venous - Lab Draw NO GROWTH AFTER 3 DAYS Anaerobic Blood Culture - Final 01/09/20 04:30 Aerobic Blood Culture - Preliminary Blood - Venous NO GROWTH AFTER 3 DAYS Anaerobic Blood Culture - Preliminary NO GROWTH AFTER 3 DAYS Med Orders - Current: Current Medications Acetaminophen (Tylenol Extra Strength) 500 mg PO Q6H PRN PRN Reason: Pain Last Admin: 01/11/20 03:38 Dose: 500 mg Documented by: Albuterol/Ipratropium (Combivent Respimat) 0 gm INH Q4H [facility] Last Admin: 01/12/20 07:42 Dose: Not Given Documented by: Benzocaine/Menthol (Cepacol Sore Throat) 1 lozenge MUCMEM Q2H PRN PRN Reason: Cough/sore throat Last Admin: 01/12/20 07:54 Dose: 1 lozenge Documented by: Benzonatate (Tessalon Perles) 100 mg PO TID [facility] Last Admin: 01/12/20 07:42 Dose: Not Given Documented by: Dexamethasone (Dexamethasone) 6 mg PO DAILY [facility] Last Admin: 01/11/20 08:08 Dose: 6 mg Documented by: Enoxaparin Sodium (Lovenox) 100 mg SUBCUT DAILY [facility] Last Admin: 01/11/20 08:15 Dose: 100 mg Documented by: Guaifenesin/Codeine Phosphate (Robitussin Ac) 5 ml PO Q3H [facility] Last Admin: 01/12/20 07:52 Dose: 5 ml Documented by: Azithromycin 500 mg/ Sodium (Chloride) 250 mls @ 250 mls/hr IV DAILY [facility] Last Admin: 01/11/20 09:01 Dose: 250 mls/hr Documented by: Ceftriaxone Sodium/Dextrose 1 (gm/ Premix) 50 mls @ 100 mls/hr IV Q24H [facility] Last Admin: 01/12/20 07:55 Dose: 100 mls/hr Documented by: REMDESIVIR (EUA) 100 mg/ (Sodium Chloride) 100 mls @ 100 mls/hr IV Q24H [facility] Last Admin: 01/11/20 10:11 Dose: 100 mls/hr Documented by: Pantoprazole Sodium 40 mg/ (Sodium Chloride) 10 mls @ 300 mls/hr IV DAILY [facility] Last Admin: 01/11/20 08:10 Dose: 300 mls/hr Documented by: Fluticasone/Salmeterol (Advair Diskus 250-50) 1 puff INH BIDRT [facility] Last Admin: 01/12/20 07:42 Dose: Not Given Documented by: Sodium Chloride (Saline Flush) 10 ml FLUSH ASDIRECTED PRN PRN Reason: Keep Vein Open Last Admin: 01/09/20 04:51 Dose: 10 ml Documented by: Sodium Chloride (Saline Flush) 2.5 ml FLUSH ASDIRECTED PRN PRN Reason: Keep Vein Open Last Admin: 01/09/20 05:12 Dose: 2.5 ml Documented by: Sodium Chloride ([place] Nasal [place]) 0 ml GEETA QID PRN PRN Reason: Congestion Last Admin: 01/10/20 11:33 Dose: 1 spray Documented by: Spironolactone (Aldactone) 50 mg PO DAILY [facility] Last Admin: 01/11/20 08:08 Dose: 50 mg Documented by: Discontinued Medications Albuterol/Ipratropium (Duoneb 3.0-0.5 Mg/3 Ml) 3 ml NEB ONETIME ONE Stop: 01/09/20 04:00 Last Admin: 01/09/20 04:50 Dose: 3 ml Documented by: Albuterol/Ipratropium (Combivent Respimat) 2 gm INH Q4H PRN PRN Reason: Shortness of Breath Last Admin: 01/11/20 07:04 Dose: 1 puff Documented by: Albuterol/Ipratropium (Combivent Respimat) 0 gm INH Q4H [facility] Last Admin: 01/11/20 11:19 Dose: Not Given Documented by: Benzonatate (Tessalon Perles) 100 mg PO TID [facility] Last Admin: 01/10/20 12:04 Dose: Not Given Documented by: Dexamethasone (Dexamethasone) 10 mg IVPUSH ONETIME ONE Stop: 01/09/20 04:46 Last Admin: 01/09/20 04:46 Dose: 10 mg Documented by: Dexamethasone (Dexamethasone) Confirm Administered Dose 10 mg .ROUTE .STK-MED ONE Stop: 01/09/20 04:44 Last Admin: 01/09/20 04:51 Dose: Not Given Documented by: Enoxaparin Sodium (Lovenox) 40 mg SUBCUT Q24H [facility] Last Admin: 01/09/20 08:24 Dose: 40 mg Documented by: Guaifenesin/Codeine Phosphate (Robitussin Ac) 5 ml PO Q4H PRN PRN Reason: Cough Last Admin: 01/10/20 09:20 Dose: 5 ml Documented by: Guaifenesin/Codeine Phosphate (Robitussin Ac) 5 ml PO Q4H [facility] Last Admin: 01/10/20 12:04 Dose: Not Given Documented by: Guaifenesin/Codeine Phosphate (Robitussin Ac) 5 ml PO Q4H [facility] Last Admin: 01/11/20 08:08 Dose: 5 ml Documented by: Sodium Chloride (Normal Saline) 1,000 mls @ 999 mls/hr IV .Bolus ONE Stop: 01/09/20 04:59 Last Admin: 01/09/20 04:13 Dose: 999 mls/hr Documented by: Ceftriaxone Sodium/Dextrose 1 (gm/ Premix) 50 mls @ 100 mls/hr IV ONETIME ONE Stop: 01/09/20 05:17 Last Admin: 01/09/20 05:09 Dose: 100 mls/hr Documented by: Azithromycin 500 mg/ Sodium (Chloride) 250 mls @ 250 mls/hr IV ONETIME STA Stop: 01/09/20 05:48 Last Admin: 01/09/20 06:09 Dose: 250 mls/hr Documented by: Magnesium Sulfate 2 gm/ Premix 50 mls @ 50 mls/hr IV ONETIME ONE Stop: 01/09/20 08:45 Last Admin: 01/09/20 08:16 Dose: 50 mls/hr Documented by: Sodium Chloride (Normal Saline) 500 mls @ 500 mls/hr IV BOLUS ONE Stop: 01/09/20 08:54 Last Admin: 01/09/20 08:16 Dose: 500 mls/hr Documented by: REMDESIVIR (EUA) 200 mg/ (Sodium Chloride) 250 mls @ 250 mls/hr IV ONETIME ONE Stop: 01/09/20 10:29 Last Admin: 01/09/20 10:22 Dose: 250 mls/hr Documented by: Lorazepam (Ativan) 1 mg IVPUSH ONETIME ONE Stop: 01/09/20 04:00 Last Admin: 01/09/20 04:14 Dose: 1 mg Documented by: Lorazepam (Ativan) 1 mg IVPUSH ONETIME ONE Stop: 01/11/20 18:12 Last Admin: 01/11/20 18:42 Dose: 1 mg Documented by: Methylprednisolone Sodium Succinate (Solu-Medrol) 125 mg IM ONETIME ONE Stop: 01/11/20 16:33 Last Admin: 01/11/20 16:43 Dose: 125 mg Documented by:
[2020-01-12] MEDS: Dexamethasone 4 MG Tab PO SCH (08:35)
[2020-01-12] MEDS: Enoxaparin 100 MG/1 ML Syringe SUBCUT SCH (08:35)
[2020-01-12] MEDS: Spironolactone 25 MG Tab PO SCH (08:35)
[2020-01-12] MEDS: Azithromycin 500 MG in Sodium Chloride 0.9% 250 ML IV SCH (08:37)
[2020-01-12] MEDS: Pantoprazole 40 MG in Sodium Chloride 0.9% 10 ML IV SCH (08:37)
[2020-01-12] MEDS ORDERED: Fluconazole 100 MG Tab PO ONE (09:19)
[2020-01-12] MEDS: REMDESIVIR (EUA) 100 MG in Sodium Chloride 0.9% 100 ML IV SCH (10:12)
== END 2020-01-12 12:35 | disposition home or self-care (01) | DRG 871 ==
LOC: MW.ED 03:39 → MW.MS 05:35
PROVIDERS: ADMIT Student in an Organized Health Care Education/Training Program; ATTEND Student in an Organized Health Care Education/Training Program
PROC: XW033E5 Introduction of Remdesivir Anti-infective into Peripheral Vein, Percutaneous Approach, New Technology Group 5 (ICD-10-PCS; principal; 2020-01-09)
PROC: XW033E5 Introduction of Remdesivir Anti-infective into Peripheral Vein, Percutaneous Approach, New Technology Group 5 (ICD-10-PCS; 2020-01-10)
PROC: XW033E5 Introduction of Remdesivir Anti-infective into Peripheral Vein, Percutaneous Approach, New Technology Group 5 (ICD-10-PCS; 2020-01-11)
DX: A41.89 Other specified sepsis (principal); U07.1 COVID-19; J12.89 Other viral pneumonia; J96.91 Respiratory failure, unspecified with hypoxia; J45.909 Unspecified asthma, uncomplicated; M54.9 Dorsalgia, unspecified; G89.29 Other chronic pain; E83.42 Hypomagnesemia; Z88.5 Allergy status to narcotic agent; Z79.899 Other long term (current) drug therapy; Z90.49 Acquired absence of other specified parts of digestive tract
CPT/HCPCS: 36415; 71045; 71045-26; 80053; 81003; 83605; 83735; 83880; 84100; 84484; 84703; 85025; 85379; 87040; 93005; 94640; 94667; 96361; 96374; 96375; 99285-25; A9270-GY; C9113; J0456; J0696; J1100; J1650; J2060; J2930; J3475; J7030; J7050; J7620-GY; J8540; U0002

== ENCOUNTER 2020-01-19 01:47 | Emergency (ER) | payer OTHER ==
--- NOTE | 2020-01-19 02:03 | EDM.PDOC ---
ED HPI GENERAL MEDICAL PROBLEM - General Chief Complaint: Abdominal Pain Stated Complaint: FEELS LIVER IS HUGE; ABDOMINAL PAIN Time Seen by Provider: 01/19/20 02:10 Source of Information: Reports: Patient - History of Present Illness INITIAL COMMENTS - FREE TEXT/NARRATIVE: 44F recently discharged about 1-week ago after admit for COVID-19 presents for abdominal pain/bloating/nausea/constipation. Notes that for the last couple of days she felt these symptoms and thought maybe it was her hydrocodone cough suppressant. She stopped the cough suppressant and started magnesium citrate for constipation which caused her to have diarrhea but didn't improve the upper abdominal bloating/pain. Abdomen Pain Score (Numeric/FACES): 6 - Related Data Allergies Allergy/AdvReac Type Severity Reaction Status Date / Time All narcotics Allergy Itching Uncoded 01/19/20 01:58 Home Meds: Home Meds Albuterol [Proair HFA] 1 puff IH Q4H PRN 12/17/19 [History] Fluticasone Propion/Salmeterol [Advair 250-50 Diskus] 1 each IH BID 12/17/19 [History] Spironolactone 50 mg PO DAILY 12/17/19 [History] Acetaminophen [Tylenol Extra Strength] 500 mg PO Q6H PRN tablet 01/12/20 [Rx] Albuterol/Ipratropium [Combivent Respimat] 0 gm INH Q4H inhaler 01/12/20 [Rx] Aspirin [Aspirin EC] 81 mg PO DAILY 30 Days #30 tablet. 01/12/20 [Rx] Benzonatate [Tessalon Perle] 100 mg PO TID PRN 7 Days #21 capsule 01/12/20 [Rx] Codeine/guaiFENesin [Robitussin AC] 5 ml PO Q4H PRN 7 Days #210 ml 01/12/20 [Rx] dexAMETHasone [Dexamethasone] 6 mg PO DAILY 7 Days #7 tablet 01/12/20 [Rx] levoFLOXacin [Levaquin] 750 mg PO DAILY 5 Days #5 tablet 01/12/20 [Rx] Past Medical History HEENT History: Reports: None Cardiovascular History: Reports: None Respiratory History: Reports: Asthma Genitourinary History: Reports: None WELT RANDER History: Reports: Musculoskeletal History: Reports: Back Pain, Chronic Neurological History: Reports: None Psychiatric History: Reports: None Endocrine/Metabolic History: Reports: None Insulin Pump Model and Vehicle Dynamics Engineer: None Hematologic History: Reports: None Immunologic History: Reports: None Oncologic (Cancer) History: Reports: None Dermatologic History: Reports: Other (See Below) Other Dermatologic History: acne - Infectious Disease History Infectious Disease History: Reports: Chicken Pox Other Infectious Disease History: Covid-19 - Past Surgical History Head Surgeries/Procedures: Reports: None Respiratory Surgical History: Reports: None GI Surgical History: Reports: Cholecystectomy Social & Family History - Family History Family Medical History: Noncontributory - Caffeine Use Caffeine Use: Reports: Coffee, Soda, Tea ED ROS GENERAL - Review of Systems Review Of Systems: Comprehensive ROS is negative, except as noted in HPI. ED EXAM, GI/ABD - Physical Exam Exam: See Below Exam Limited By: No Limitations General Appearance: Alert, WD/WN, No Apparent Distress Ears: Normal External Exam Nose: Normal Inspection Throat/Mouth: Normal Inspection, Normal Voice, No Airway Compromise Head: Atraumatic, Normocephalic Neck: Normal Inspection Respiratory/Chest: No Respiratory Distress, Lungs Clear, Normal Breath Sounds, No Accessory Muscle Use Cardiovascular: Normal Peripheral Pulses, Regular Rate, Rhythm GI/Abdominal Exam: Soft, Non-Tender, Other (obese) Extremities: Normal Inspection Neurological: Alert Psychiatric: Normal Affect, Normal Mood Skin Exam: Warm, Dry, Intact, Normal Color Course - Vital Signs Last Recorded V/S: Last Vital Signs Temp 96.6 F L 01/19/20 01:58 Pulse 93 01/19/20 04:00 Resp 16 01/19/20 04:00 BP 133/81 01/19/20 04:00 Pulse Ox 96 01/19/20 04:00 - Orders/Labs/Meds Orders: Active Orders 24 hr Category Date Time Status CORONAVIRUS COVID-19 PCR PHL Stat Lab 01/19/20 03:40 Received CULTURE BLOOD [BC] Stat Lab 01/19/20 02:55 Received CULTURE BLOOD [BC] Stat Lab 01/19/20 03:00 Received LACTATE WITH REFLEX [BG] Stat Lab 01/19/20 04:57 Received Sodium Chloride 0.9% [Saline Flush] Med 01/19/20 02:09 Active 10 ml FLUSH ASDIRECTED PRN Sodium Chloride 0.9% [Saline Flush] Med 01/19/20 02:09 Active 2.5 ml FLUSH ASDIRECTED PRN Blood Culture x2 Reflex Set [OM.PC] Stat Ot 01/19/20 02:43 Ordered Saline Lock Insert [OM.PC] Stat Ot 01/19/20 02:10 Ordered Medication Orders Sodium Chloride (Saline Flush) 10 ml FLUSH ASDIRECTED PRN PRN Reason: Keep Vein Open Sodium Chloride (Saline Flush) 2.5 ml FLUSH ASDIRECTED PRN PRN Reason: Keep Vein Open Labs: Laboratory Tests 01/19/20 01/19/20 01/19/20 Range/Units 02:16 02:16 02:16 WBC 31.57 H (4.0-11.0) K/uL RBC 4.58 (4.30-5.90) M/uL Hgb 13.2 (12.0-16.0) g/dL Hct 41.0 (36.0-46.0) % MCV 89.5 (80.0-98.0) fL MCH 28.8 (27.0-32.0) pg MCHC 32.2 (31.0-37.0) g/dL RDW Std Deviation 47.9 (28.0-62.0) fl RDW Coeff of Sim 15 (11.0-15.0) % Plt Count 382 (150-400) K/uL MPV 9.00 (7.40-12.00) fL Add Manual Diff YES Neutrophils % (Manual) 73 (48.0-80.0) % Band Neutrophils % 3 % Lymphocytes % (Manual) 9 L (16.0-40.0) % Monocytes % (Manual) 7 (0.0-15.0) % Metamyelocytes % 4 % Myelocytes % 4 % Nucleated RBC % 0.4 /100WBC Absolute Seg Neuts 23.0 H (1.4-5.7) Band Neutrophils # 0.9 Lymphocytes # (Manual) 2.8 H (0.6-2.4) Monocytes # (Manual) 2.2 H (0.0-0.8) Absolute Metamyelocyte 1.3 Absolute Myelocytes 1.3 Nucleated RBCs # 0 K/uL Lactate 2.4 H* (0.20-2.00) mmol/L Sodium 137 (136-145) mmol/L Potassium 4.6 (3.5-5.1) mmol/L Chloride 99 (98-107) mmol/L Carbon Dioxide 25.8 (21.0-32.0) mmol/L BUN 20 H (7.0-18.0) mg/dL Creatinine 0.9 (0.6-1.0) mg/dL Est Cr Clr Drug Dosing TNP Estimated GFR (MDRD) > 60.0 ml/min Glucose 94 (74-106) mg/dL Calcium 8.9 (8.5-10.1) mg/dL Magnesium 2.2 (1.8-2.4) mg/dL Total Bilirubin 0.2 (0.2-1.0) mg/dL AST 44 H (15-37) IU/L ALT 86 H (14-63) IU/L Alkaline Phosphatase 84 (46-116) U/L Total Protein 6.5 (6.4-8.2) g/dL Albumin 3.3 L (3.4-5.0) g/dL Globulin 3.2 (2.6-4.0) g/dL Albumin/Globulin Ratio 1.0 (0.9-1.6) Lipase 344 (73-393) U/L Urine Color Urine Appearance Urine pH (5.0-8.0) Ur Specific Beverly (1.001-1.035) Urine Protein (NEGATIVE) mg/dL Urine Glucose (UA) (NEGATIVE) mg/dL Urine Ketones (NEGATIVE) mg/dL Urine Occult Blood (NEGATIVE) Urine Nitrite (NEGATIVE) Urine Bilirubin (NEGATIVE) Urine Urobilinogen (<2.0) EU/dL Ur Leukocyte Esterase (NEGATIVE) Urine HCG, Qual (NEGATIVE) SARS CoV-2 RNA Rapid DEBBIE (NEGATIVE) 01/19/20 01/19/20 01/19/20 Range/Units 03:40 04:25 04:25 WBC (4.0-11.0) K/uL RBC (4.30-5.90) M/uL Hgb (12.0-16.0) g/dL Hct (36.0-46.0) % MCV (80.0-98.0) fL MCH (27.0-32.0) pg MCHC (31.0-37.0) g/dL RDW Std Deviation (28.0-62.0) fl RDW Coeff of Sim (11.0-15.0) % Plt Count (150-400) K/uL MPV (7.40-12.00) fL Add Manual Diff Neutrophils % (Manual) (48.0-80.0) % Band Neutrophils % % Lymphocytes % (Manual) (16.0-40.0) % Monocytes % (Manual) (0.0-15.0) % Metamyelocytes % % Myelocytes % % Nucleated RBC % /100WBC Absolute Seg Neuts (1.4-5.7) Band Neutrophils # Lymphocytes # (Manual) (0.6-2.4) Monocytes # (Manual) (0.0-0.8) Absolute Metamyelocyte Absolute Myelocytes Nucleated RBCs # K/uL Lactate (0.20-2.00) mmol/L Sodium (136-145) mmol/L Potassium (3.5-5.1) mmol/L Chloride (98-107) mmol/L Carbon Dioxide (21.0-32.0) mmol/L BUN (7.0-18.0) mg/dL Creatinine (0.6-1.0) mg/dL Est Cr Clr Drug Dosing Estimated GFR (MDRD) ml/min Glucose (74-106) mg/dL Calcium (8.5-10.1) mg/dL Magnesium (1.8-2.4) mg/dL Total Bilirubin (0.2-1.0) mg/dL AST (15-37) IU/L ALT (14-63) IU/L Alkaline Phosphatase (46-116) U/L Total Protein (6.4-8.2) g/dL Albumin (3.4-5.0) g/dL Globulin (2.6-4.0) g/dL Albumin/Globulin Ratio (0.9-1.6) Lipase (73-393) U/L Urine Color YELLOW Urine Appearance CLEAR Urine pH 7.5 (5.0-8.0) Ur Specific Beverly 1.010 (1.001-1.035) Urine Protein NEGATIVE (NEGATIVE) mg/dL Urine Glucose (UA) NEGATIVE (NEGATIVE) mg/dL Urine Ketones NEGATIVE (NEGATIVE) mg/dL Urine Occult Blood NEGATIVE (NEGATIVE) Urine Nitrite NEGATIVE (NEGATIVE) Urine Bilirubin NEGATIVE (NEGATIVE) Urine Urobilinogen 0.2 (<2.0) EU/dL Ur Leukocyte Esterase NEGATIVE (NEGATIVE) Urine HCG, Qual NEGATIVE (NEGATIVE) SARS CoV-2 RNA Rapid DEBBIE POSITIVE H (NEGATIVE) Meds: Medications Generic Name Dose Route Start Last Admin Trade Name Mello PRN Reason Stop Dose Admin Sodium Chloride 10 ml 01/19/20 02:09 Saline Flush FLUSH ASDIRECTED PRN Keep Vein Open Sodium Chloride 2.5 ml 01/19/20 02:09 Saline Flush FLUSH ASDIRECTED PRN Keep Vein Open Discontinued Medications Generic Name Dose Route Start Last Admin Trade Name Mello PRN Reason Stop Dose Admin Diphenhydramine HCl 25 mg 01/19/20 02:19 01/19/20 02:35 Benadryl IVPUSH 01/19/20 02:20 25 mg ONETIME ONE Administration Sodium Chloride 1,000 mls @ 999 mls/hr 01/19/20 02:11 01/19/20 02:49 Normal Saline IV 01/19/20 03:11 999 mls/hr .Bolus ONE Administration Piperacillin Sod/Tazobactam 50 mls @ 100 mls/hr 01/19/20 02:43 01/19/20 03:35 Sod 3.375 gm/ Sodium Chloride IV 01/19/20 03:12 100 mls/hr ONETIME ONE Administration Iopamidol 100 ml 01/19/20 03:59 01/19/20 04:00 Isovue-370 (76%) IVPUSH 01/19/20 04:00 100 ml ONETIME STA Administration Morphine Sulfate 4 mg 01/19/20 02:11 01/19/20 02:49 Morphine IVPUSH 01/19/20 02:12 4 mg ONETIME ONE Administration Ondansetron HCl 4 mg 01/19/20 02:11 01/19/20 02:36 Zofran IVPUSH 01/19/20 02:12 4 mg ONETIME ONE Administration - Re-Assessments/Exams Free Text/Narrative Re-Assessment/Exam: 01/19/20 02:17 Will get labs nad CT A/P, will treat symptomatically while working up 01/19/20 04:42 Labs remarkable for leukocytosis of 32, elevated lactate. Zosyn ordered for broad spectrum coverage. CT does not show acute abnormality other than possible enteritis. Nothing to explain the high WBC. Will transfer patient for further workup and management as our hospital is full. Closest facility is [place], [place]. 01/19/20 05:09 Dr. Lyon agrees to transfer at [facility] Departure - Departure Time of Disposition: 05:10 Disposition: DC/Tfer to Hospice-Med Fac 51 Condition: Fair Clinical Impression: COVID-19 Abdominal pain Qualifiers: Abdominal location: generalized Qualified Code(s): R10.84 - Generalized abdominal pain - Discharge Information Referrals: Kathleen Aguilar, SECURITY GUARD DISPATCHER [Primary Care Provider] - Forms: ED Department Discharge Sepsis Event Note (ED) - Focused Exam Vital Signs: Vital Signs Temp Pulse Resp BP Pulse Ox 01/19/20 04:00 93 16 133/81 96 01/19/20 01:58 96.6 F L 103 H 18 124/96 H 98 - My Orders Last 24 Hours: My Active Orders 01/19/20 02:09 Sodium Chloride 0.9% [Saline Flush] 10 ml FLUSH ASDIRECTED PRN Sodium Chloride 0.9% [Saline Flush] 2.5 ml FLUSH ASDIRECTED PRN 01/19/20 02:10 Saline Lock Insert [OM.PC] Stat 01/19/20 02:43 Blood Culture x2 Reflex Set [OM.PC] Stat 01/19/20 02:55 CULTURE BLOOD [BC] Stat 01/19/20 03:00 CULTURE BLOOD [BC] Stat 01/19/20 03:40 CORONAVIRUS COVID-19 PCR PHL Stat 01/19/20 04:57 LACTATE WITH REFLEX [BG] Stat - Assessment/Plan Last 24 Hours: My Active Orders 01/19/20 02:09 Sodium Chloride 0.9% [Saline Flush] 10 ml FLUSH ASDIRECTED PRN Sodium Chloride 0.9% [Saline Flush] 2.5 ml FLUSH ASDIRECTED PRN 01/19/20 02:10 Saline Lock Insert [OM.PC] Stat 01/19/20 02:43 Blood Culture x2 Reflex Set [OM.PC] Stat 01/19/20 02:55 CULTURE BLOOD [BC] Stat 01/19/20 03:00 CULTURE BLOOD [BC] Stat 01/19/20 03:40 CORONAVIRUS COVID-19 PCR PHL Stat 01/19/20 04:57 LACTATE WITH REFLEX [BG] Stat
[2020-01-19] MEDS ORDERED: Sodium Chloride 0.9% 10 ML Syringe FLUSH PRN (02:09)
[2020-01-19] MEDS ORDERED: Sodium Chloride 0.9% 2.5 ML Syringe FLUSH PRN (02:09)
[2020-01-19] MEDS ORDERED: Ondansetron 4 MG/2 ML SDV IVPUSH ONE (02:11)
[2020-01-19] MEDS ORDERED: Sodium Chloride 0.9% 1,000 ML IV ONE (02:11)
[2020-01-19] MEDS ORDERED: Morphine 4 MG/ML Syringe IVPUSH ONE ×2 (02:11→10:03)
[2020-01-19] MEDS ORDERED: diphenhydrAMINE 50 MG/ML SDV IVPUSH ONE (02:19)
[2020-01-19] MEDS ORDERED: Piperacillin/Tazobactam 3.375 GM in Sodium Chloride 0.9% 50 ML IV ONE ×2 (02:43→08:01)
[2020-01-19 02:56] LABS: BLOOD UREA NITROGEN,BUN 20 mg/dL (7.0-18.0); CARBON DIOXIDE,CO2 25.8 mmol/L (21.0-32.0); CHLORIDE,CL 99 mmol/L (98-107); GLUCOSE RANDOM 94 mg/dL (74-106); LIPASE 344 U/L (73-393); POTASSIUM,K 4.6 mmol/L (3.5-5.1); SODIUM,NA 137 mmol/L (136-145)
[2020-01-19] MEDS ORDERED: Iopamidol 755 Mg/ML 100 ML Bottle IVPUSH STA (03:59)
--- NOTE | 2020-01-19 04:09 | CR ---
Indication: Recent COVID Technique: Chest 1 view Comparison: 01/11/2020 Findings/Impression: Cardiovascular and mediastinum: Stable cardiomediastinal silhouette. Lungs and pleural space: Mild basilar interstitial opacities. Correlate for an active infectious process, including viral pneumonia. No lobar consolidation or pleural effusions. No pneumothorax seen. Bones and soft tissues: No significant findings. Dictated by Efren Hector MD @ 01/19/2020 4:07:20 AM Dictated by: Efren Hector MD @ 01/19/2020 04:07:26 (Electronically Signed)
--- NOTE | 2020-01-19 04:27 | CT ---
INDICATION: Abdominal distention. Recent COVID infection TECHNIQUE: CT abdomen and pelvis acquired with IV contrast. 100 mL of Isovue 370 administered. COMPARISON: 01/20/2019 FINDINGS: Lower chest: Multiple bilateral small patchy and nodular soft tissue and ground-glass pulmonary opacities. Liver: A 1.3 x 1.0 cm lateral left hepatic low-density lesion on image 29 which demonstrated diffuse enhancement on the prior study. Spleen: Unremarkable. Pancreas: Unremarkable. Gallbladder and bile ducts: Cholecystectomy. Adrenal glands: Unremarkable. Kidneys: A dilated left extrarenal pelvis again seen. Left intra renal pelviectasis. No significant ureteral dilatation. GI tract: No mechanical bowel obstruction. Some fluid and gas-filled small bowel segments, nonspecific. A normal appendix. No significant pericolonic changes. At least 1 sigmoid diverticulum seen. Vascular structures: Unremarkable. Lymph nodes: Unremarkable. Miscellaneous: Apparent tiny fluid in the cul-de-sac. No free air. Pelvic Organs: A 2.2 cm right adnexal low-density structure which could represent a dominant follicle. No gross uterine or bladder abnormality seen. Bones: A possible disc extrusion at L5-S1, cephalad to the disc level. IMPRESSION: Multiple small patchy and nodular pulmonary opacities at the lung bases, consistent with an infectious process, compatible with COVID-19 pneumonia, given the history. Left renal pelviectasis with a dilated extrarenal pelvis, without significant ureteral dilatation. Correlate for a component of left UPJ obstruction. Nonspecific fluid and gas-filled small bowel segments. Correlate clinically to exclude enteritis. No evidence of appendicitis or diverticulitis. A 1.3 cm left hepatic low-density lesion which demonstrated diffuse enhancement on the prior study. This could represent a slow filling hemangioma, however not well evaluated. Follow-up with contrast MRI. Dictated by Efren Hector MD @ 01/19/2020 4:26:15 AM Please note that all CT scans at this facility use dose modulation, iterative reconstruction, and/or weight-based dosing when appropriate to reduce radiation dose to as low as reasonably achievable. Dictated by: Efren Hector MD @ 01/19/2020 04:26:19 (Electronically Signed)
[2020-01-19] MEDS ORDERED: Morphine 2 MG/ML SYRINGE IVPUSH ONE (07:05)
--- NOTE | 2020-01-19 07:05 | PCM.SN.2 ---
- Free Text/Narrative Note: I accepted care of this patient from Dr. Montgomery at 0700 hrs. In brief, this is a 44-year-old female with past medical history of chronic back pain and asthma, recently diagnosed with COVID-19 infection. Was hospitalized here from 01/08 to 01/12/2020, received antibiotics in remdesivir and was weaned off O2 supplementa tion. She was discharged home on Levaquin and dexamethasone. This morning, she presented back to the emergency department complaining of severe abdominal pain, bloating, nausea, and constipation. Noted to have leukocytosis to 32,000 with an elevated lactate. Lactate trended down after fluids. Given IV Zosyn. Urinalysis bland. CT imaging shows patchy groundglass opacities in the lungs and possible small bowel enteritis, otherwise no acute findings. Patient be transferred to [facility] in [place] and we are awaiting ambulance arrival. 9:18 AM: The patient has been accepted to [facility] in [place] but we do not have a program director EMS crew locally they can transfer the patient. We are trying to locate an EMS crew to transport her there. I did contact multiple closer hospitals including [place], [place], [facility], etc. but we are unable to secure a closer accepting facility. Patient is resting comfortably, pain-free, no nausea. Ordered a meal tray. Vitally stable. 10:28 AM: I spoke with Dr. Saavedra at [facility]. We discussed the case. He does not feel that the patient meets criteria for admission to their specialized COVID unit and feels that she is more appropriate for a general medical surgical barreto. I agree. However, [facility] has no medical surgical availability until this evening. I did put the patient on a waiting list for a bed at their facility. 10:35 AM: We were able to secure admission at the [facility] in [place], [place]. I spoke with the hospitalist Dr. Patel who agrees to admit the patient. At this point we are facing a significant ambulance delay. There is no [facility] ambulance crew that can transport the patient until approximately 2300 hrs. this evening. After a 5-hour transport, the patient would arrive in [place] at approximately 04:00 tomorrow morning at the earliest. The patient has sepsis, a time-critical diagnosis. She meets inpatient admission criteria and needs to be under the care of an internal medicine hospitalist, a resource that we do not have available here in our emergency department and we have no inpatient bed availability. I did discuss the case with the ED medical office scheduler Dr. Zhong and the DIRECTOR ORACLE Dr. Arvizu, we are in agreement that the patient should be transferred by air due to the significant delay in ALS ground ambulance availability and the transport distance, and that timely admission and internal medicine treatment would be in the patient's best interest. I ordered subcutaneous enoxaparin and the patient was given her second dose of IV Zosyn. She is resting comfortably. T ransferred to the ground EMS crew in good condition.
[2020-01-19] MEDS ORDERED: Enoxaparin 40 MG/0.4 ML Syringe SUBCUT SCH (10:00)
[2020-01-19] MEDS ORDERED: Morphine 4 MG/ML Syringe ONE (10:02)
[2020-01-19 10:38] LABS: BLOOD UREA NITROGEN,BUN 17 mg/dL (7.0-18.0); CARBON DIOXIDE,CO2 26.6 mmol/L (21.0-32.0); CHLORIDE,CL 101 mmol/L (98-107); GLUCOSE RANDOM 105 mg/dL (74-106); POTASSIUM,K 3.9 mmol/L (3.5-5.1); SODIUM,NA 137 mmol/L (136-145)
== END 2020-01-19 11:10 ==
LOC: MW.ED 01:47
DX: U07.1 COVID-19 (principal); R10.84 Generalized abdominal pain; J45.909 Unspecified asthma, uncomplicated; Z90.49 Acquired absence of other specified parts of digestive tract; Z88.5 Allergy status to narcotic agent; Z79.82 Long term (current) use of aspirin; Z79.899 Other long term (current) drug therapy
CPT/HCPCS: 36415; 71045; 74177; 80053; 81003; 81025; 83605; 83690; 83735; 85025; 87040; 87635; 96365; 96366; 96375; 96376; 99285; J1200; J1650; J2270; J2405; J2543; J7030; J7050; Q9967; 99284; U0002

== ENCOUNTER 2024-06-27 15:23 | Emergency (ER) | payer BC ==
[2024-06-27] MEDS: Acetaminophen 500 MG Tab PO STA (16:23)
== END 2024-06-27 16:40 | disposition home or self-care (01) ==
LOC: MW.ED 15:23
DX: S09.90XA Unspecified injury of head, initial encounter (principal); Z88.8 Allergy status to other drugs, medicaments and biological substances; Z79.899 Other long term (current) drug therapy; Z79.82 Long term (current) use of aspirin; Z75.8 Other problems related to medical facilities and other health care; W00.0XXA Fall on same level due to ice and snow, initial encounter; Y93.89 Activity, other specified
CPT/HCPCS: 70450; 99283; A9270

== ENCOUNTER 2025-02-27 09:58 | Emergency (ER) | payer BC ==
[2025-02-27] MEDS: Lidocaine/Epineph/Tetracaine 3 ML Syringe TOP ONE (10:20)
[2025-02-27] MEDS: Diphtheria,Pertussis(Acell),Tetanus Vaccine 0.5 ML Syringe IM ONE (10:29)
== END 2025-02-27 12:03 | disposition home or self-care (01) ==
LOC: MW.ED 09:58
DX: S81.012A Laceration without foreign body, left knee, initial encounter (principal); J45.909 Unspecified asthma, uncomplicated; Z88.8 Allergy status to other drugs, medicaments and biological substances; Z79.899 Other long term (current) drug therapy; Z90.49 Acquired absence of other specified parts of digestive tract; W01.0XXA Fall on same level from slipping, tripping and stumbling without subsequent striking against object, initial encounter
CPT/HCPCS: 12001; 73562; 90471; 90715; 99283; A9270; J2003